=== PATIENT | male | born 1960 | race Caucasian/White ===

== ENCOUNTER 2018-09-28 19:07 | Observation (INO) | payer OTHER, SELFPAY ==
[2018-09-28 19:39] LABS: Absolute Lymphocytes (CBC) 4.4 K/uL (0.7-4.9); Absolute Neutrophil 7.6 K/uL (1.8-8.0); Basophils % 0.4 % (0-1.3); Eosinophils % 1.6 % (0-4.4); Hematocrit 45.7 % (39.6-49.0); Lymphocytes % 33.1 % (15.3-44.8); MPV 9.4 fL (7.6-11.3); Monocytes % 7.8 % (3.3-12.3); RBC Red Blood Cell Count 4.99 M/uL (4.33-5.43)
[2018-09-28 19:40] LABS: Protime INR 1.03
[2018-09-28] MEDS ORDERED: METOPROLOL TAR 25 MG TAB ONE (19:49)
--- NOTE | 2018-09-28 19:49 | RAD REPORT ---
EXAM DESCRIPTION: [place] Single View09/28/2018 7:41 pm CLINICAL HISTORY: Chest pain COMPARISON: none FINDINGS: The lungs appear clear of acute infiltrate. The heart is normal size IMPRESSION: No acute abnormalities displayed
[2018-09-28 19:56] LABS: ALT/SGPT 18 U/L (12-78); AST/SGOT 12 U/L (15-37); Albumin 3.4 g/dL (3.4-5.0); Alkaline Phosphatase 128 U/L (45-117); BUN Blood Urea Nitrogen 19 mg/dL (7-18); Bicarbonate 24 mmol/L (21-32); Bilirubin Direct 0.1 mg/dL (0-0.2); Bilirubin Total 0.4 mg/dL (0.2-1.0); Glucose Level 92 mg/dL (74-106); Magnesium 2.4 mg/dL (1.8-2.4); NT PRO-BNP 201 pg/mL (<125); Potassium 3.5 mmol/L (3.5-5.1); Protein, Total 7.4 g/dL (6.4-8.2); Sodium Level 139 mmol/L (136-145); Troponin (Emerg Dept Use Only) < 0.02 ng/mL (0.0-0.045)
[2018-09-28] MEDS ORDERED: ALPRAZOLAM 0.25 MG TABLET PO PRN (20:08)
[2018-09-28] MEDS ORDERED: MORPHINE 4 MG/ML SYR IV PRN (20:08)
[2018-09-28] MEDS ORDERED: ACETAMINOPHEN 500 MG TAB PO PRN (20:08)
--- NOTE | 2018-09-28 20:11 | EDPHYS ---
Physician Documentation [facility] Name: Juan José Mcginnis Jr Age: 58 yrs Sex: Male : 1960 Arrival Date: 09/28/2018 Time: 19:07 Bed 18 Private MD: ED Physician Mir Marroquin HPI: 09/28 19:30 This 58 yrs old Male presents to ER via Ambulatory with complaints of Chest cp Pain. 19:30 The patient or guardian reports chest pain that is located primarily in the anterior cp chest wall, left. 19:30 Onset: today, while working. The pain radiates to back. Associated signs and symptoms: cp Pertinent negatives: abdominal pain, diaphoresis, dizziness, headache, lower extremity pain, lower extremity swelling, recent travel, shortness of breath, syncope. 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 Historical: - Allergies: 19:12 No Known Allergies; ed1 - Home Meds: 19:25 Nitrostat SL [Active]; bb - PMHx: 19:12 Hypertension; ed1 19:25 CAD; High Cholesterol; bb - PSHx: 19:12 Heart stents; ed1 19:25 Knee surgery; arm surgery; Tonsillectomy; bb - Immunization history:: Adult Immunizations unknown. - Social history:: Smoking status: Patient uses tobacco products, smokes one pack cigarettes per day. Patient uses alcohol, but reports only rare drinking. - Ebola Screening: : No symptoms or risks identified at this time. ROS: 19:33 Constitutional: Negative for body aches, chills, fever, poor PO intake. cp 19:33 Eyes: Negative for injury, pain, redness, and discharge. cp 19:33 ENT: Negative for drainage from ear(s), ear pain, sore throat, difficulty swallowing, difficulty handling secretions. 19:33 Cardiovascular: Positive for chest pain, Negative for edema, palpitations. 19:33 Respiratory: Negative for cough, shortness of breath, wheezing. 19:33 Abdomen/GI: Negative for abdominal pain, nausea, vomiting, and diarrhea, constipation, black/tarry stool, rectal bleeding. 19:33 Back: Positive for radiated pain. 19:33 Skin: Negative for rash. 19:33 Neuro: Negative for altered mental status, gait disturbance, headache, weakness. 19:33 All other systems are negative. Exam: 19:25 ECG was reviewed by the Attending Physician. cp 19:40 Constitutional: The patient appears in no acute distress, alert, awake, cp non-diaphoretic, non-toxic, well developed, well nourished. 19:40 Head/Face: Normocephalic, atraumatic. cp 19:40 Eyes: Pupils equal round and reactive to light, extra-ocular motions intact. Lids and lashes normal. Conjunctiva and sclera are non-icteric and not injected. Cornea within normal limits. Periorbital areas with no swelling, redness, or edema. ENT: Nares patent. No nasal discharge, no septal abnormalities noted. Tympanic membranes are normal and external auditory canals are clear. Oropharynx with no redness, swelling, or masses, exudates, or evidence of obstruction, uvula midline. Mucous membranes moist. Chest/axilla: Normal chest wall appearance and motion. Nontender with no deformity. No lesions are appreciated. 19:40 Cardiovascular: Rate: normal, Rhythm: regular, Heart sounds: murmur, not appreciated, Edema: is not appreciated, JVD: is not appreciated. 19:40 Respiratory: the patient does not display signs of respiratory distress, Respirations: normal, no use of accessory muscles, no retractions, no splinting, no tachypnea, labored breathing, is not present, Breath sounds: are clear throughout, no decreased breath sounds, no stridor, no wheezing. 19:40 Abdomen/GI: Inspection: abdomen appears normal, Bowel sounds: active, all quadrants, Palpation: abdomen is soft and non-tender, in all quadrants. 19:40 Back: pain, that is mild, of the upper back, ROM is normal. 19:40 Musculoskeletal/extremity: Exam is negative for calf tenderness, edema. 19:40 Skin: no rash present. 19:40 Neuro: Orientation: to person, place \T\ time. Mentation: is normal, Cerebellar function: is grossly normal, Motor: moves all fours, strength is normal, Sensation: is normal. Vital Signs: 19:21 BP 147 / 104; Pulse 97; Resp 16 S; Temp 98.5(O); Pulse Ox 98% on R/A; Weight 95.25 kg bb (R); Height 5 ft. 9 in. (175.26 cm) (R); Pain 0/10; 19:30 BP 150 / 104; Pulse 92; Resp 18; Pulse Ox 98% ; ea 20:00 BP 129 / 89; Pulse 83; Resp 18; Temp 98; Pulse Ox 98% on R/A; Pain 0/10; ea 21:15 BP 150 / 93; Pulse 75; Resp 18; Pulse Ox 99% on R/A; Pain 0/10; ea 21:18 Temp 98; ea 19:21 Body Mass Index 31.01 (95.25 kg, 175.26 cm) bb MDM: 19:13 Patient medically screened. cp 19:30 Differential diagnosis: abnormal EKG, acute myocardial infarction, coronary artery cp disease esophagitis, pulmonary embolus, stable angina, thoracic aortic disection, unstable angina. 20:10 The patient was not given aspirin in the Emergency Department. Patient reports taking cp aspirin within the past 24 hours. 20:10 Data reviewed: vital signs, nurses notes, lab test result(s), EKG, radiologic studies, cp plain films, and as a result, I will admit patient. Test interpretation: by ED physician or midlevel provider: ECG, plain radiologic studies. Counseling: I had a detailed discussion with the patient and/or guardian regarding: the historical points, exam findings, and any diagnostic results supporting the discharge/admit diagnosis, lab results, radiology results, the need for further work-up and treatment in the hospital. 09/28 19:19 Order name: Basic Metabolic Panel cp 09/28 19:19 Order name: CBC with Diff cp 09/28 19:19 Order name: LFT's cp 09/28 19:19 Order name: Magnesium cp 09/28 19:19 Order name: NT PRO-BNP; Complete Time: 20:02 cp 09/28 20:02 Interpretation: Abnormal: NT PRO-BNP 201. cp 09/28 19:19 Order name: PT-INR; Complete Time: 20:02 cp 09/28 19:19 Order name: Troponin (emerg Dept Use Only); Complete Time: 20:02 cp 09/28 19:20 Order name: Basic Metabolic Panel; Complete Time: 20:02 EDMS 09/28 19:20 Order name: CBC with Automated Diff; Complete Time: 20:02 EDMS 09/28 20:02 Interpretation: Normal except: WBC 13.2. cp 09/28 19:20 Order name: Liver (Hepatic) Function; Complete Time: 20:02 [facility] 09/28 19:20 Order name: Magnesium; Complete Time: 20:02 [facility] 09/28 20:13 Order name: Lipid Profile [facility] 09/28 20:13 Order name: Lipid Profile [facility] 09/28 20:13 Order name: Troponin I [facility] 09/28 19:19 Order name: XRAY Chest (1 view); Complete Time: 20:02 cp 09/28 19:19 Order name: EKG; Complete Time: 19:20 cp 09/28 19:19 Order name: Cardiac monitoring; Complete Time: 21:37 cp 09/28 19:19 Order name: EKG - Nurse/Tech; Complete Time: 21:37 cp 09/28 19:19 Order name: IV Saline Lock; Complete Time: 21:37 cp 09/28 19:19 Order name: Labs collected and sent; Complete Time: 21:37 cp 09/28 20:13 Order name: CONS Physician Consult [facility] 09/28 20:13 Order name: CONS Physician Consult [facility] 09/28 20:13 Order name: Heart Healthy [facility] 09/28 20:13 Order name: Echo with Doppler [facility] 09/28 20:13 Order name: EKG Electrocardiogram [facility] 09/28 20:13 Order name: EKG Electrocardiogram [facility] 09/28 20:13 Order name: Troponin I [facility] 09/28 20:13 Order name: Troponin I [facility] 09/28 19:19 Order name: O2 Per Protocol; Complete Time: 21:37 cp 09/28 19:19 Order name: O2 Sat Monitoring; Complete Time: 21:37 cp 09/28 20:06 Order name: Blood Pressure Recheck: bilateral upper extremities; Complete Time: 21:36 cp EC:25 Rate is 96 beats/min. Rhythm is regular. UT interval is normal. QRS interval is normal. cp QT interval is normal. Interpreted by me. Reviewed by me. Administered Medications: 19:33 Not Given (pt took dose before arrival to ED): Aspirin Chewable Tablet 324 mg PO once; ea 81 mg tablets x 4 19:42 Drug: Metoprolol 25 mg Route: PO; ea 21:36 Follow up: Response: No adverse reaction ea Disposition: 21:38 Co-signature as Attending Physician, Mir Marroquin MD. ma2 Disposition: 09/28/18 20:11 Hospitalization ordered by Mir Ramirez for Observation. Preliminary diagnosis is Chest pain, unspecified. - Bed requested for Telemetry/MedSurg (observation). - Status is Observation. ea - Condition is Stable. - Problem is new. - Symptoms have improved. UTI on Admission? No Addendum: 10/05/2018 19:54 Co-signature as Attending Physician, Mir Marroquin MD. m a2 Signatures: Dispatcher [employer] EDMS Jasmine Arenas RN RN bb Stephy Garduno RN RN ed1 Rohan Shen PA PA cp Garcia, Cindy RN RN cg Melinda Brown RN RN Mir Bentley MD MD ma2 Corrections: (The following items were deleted from the chart) 09/28 19:25 19:12 Home Meds: None; ed1 bb 20:30 20:11 Hospitalization Ordered by Mir Ramirez MD for Observation. Preliminary cg diagnosis is Chest pain, unspecified. Bed requested for Telemetry/MedSurg (observation). Status is Observation. Condition is Stable. Problem is new. Symptoms have improved. UTI on Admission? No. cp 21:36 20:30 09/28/2018 20:11 Hospitalization Ordered by Mir Ramirez MD for Observation. ea Preliminary diagnosis is Chest pain, unspecified. Bed requested for Telemetry/MedSurg (observation). Status is Observation. Condition is Stable. Problem is new. Symptoms have improved. UTI on Admission? No. cg
--- NOTE | 2018-09-28 20:11 | ER ---
Nurse's Notes [facility] Name: Juan José Mcginnis Jr Age: 58 yrs Sex: Male : 1960 Arrival Date: 09/28/2018 Time: 19:07 Bed 18 Private MD: Diagnosis: Chest pain, unspecified Presentation: 09/28 19:10 Presenting complaint: Patient states: I have chest pains that started a couple of hours ed1 ago. They are not that bad right now but I took some Nitro. Transition of care: patient was not received from another setting of care. Onset of symptoms was September 28, 2018. Risk Assessment: Do you want to hurt yourself or someone else? Patient reports no desire to harm self or others. Initial Sepsis Screen: Does the patient meet any 2 criteria? No. Patient's initial sepsis screen is negative. Does the patient have a suspected source of infection? No. Patient's initial sepsis screen is negative. Care prior to arrival: Medication(s) given: Nitroglycerin. 19:10 Method Of Arrival: Ambulatory ed1 19:10 Acuity: CLAUDIA 2 ed1 Historical: - Allergies: 19:12 No Known Allergies; ed1 - Home Meds: 19:25 Nitrostat SL [Active]; bb - PMHx: 19:12 Hypertension; ed1 19:25 CAD; High Cholesterol; bb - PSHx: 19:12 Heart stents; ed1 19:25 Knee surgery; arm surgery; Tonsillectomy; bb - Immunization history:: Adult Immunizations unknown. - Social history:: Smoking status: Patient uses tobacco products, smokes one pack cigarettes per day. Patient uses alcohol, but reports only rare drinking. - Ebola Screening: : No symptoms or risks identified at this time. Screenin:25 Abuse screen: Denies threats or abuse. Nutritional screening: No deficits noted. ea Tuberculosis screening: No symptoms or risk factors identified. Fall Risk None identified. Assessment: 19:28 General: Appears in no apparent distress. Pain: Denies pain. Complains of pain in chest ea Pain radiates to back Pain currently is 0 out of 10 on a pain scale. Quality of pain is described as pressure, Pain began 1 hour ago. Is continuous. Neuro: Level of Consciousness is awake, alert, obeys commands, Oriented to person, place, time, situation. Cardiovascular: Patient's skin is warm and dry. Respiratory: Airway is patent Respiratory effort is even, unlabored, Respiratory pattern is regular, symmetrical. Derm: Skin is pink, warm \T\ dry. Musculoskeletal: Circulation, motion, and sensation intact. 20:30 Reassessment: Patient and/or family updated on plan of care and expected duration. Pain ea level reassessed. Patient is alert, oriented x 3, equal unlabored respirations, skin warm/dry/pink. 21:16 Reassessment: Patient and/or family updated on plan of care and expected duration. Pain ea level reassessed. Patient is alert, oriented x 3, equal unlabored respirations, skin warm/dry/pink. Report called to Leonel ANSARI on fourth floor. 21:30 Reassessment: Patient and/or family updated on plan of care and expected duration. Pain ea level reassessed. Patient is alert, oriented x 3, equal unlabored respirations, skin warm/dry/pink. Pt denies chest pain at this time, admitted to fourth floor, pt taken via wheelchair per charge nurse, pt tolerating well. Vital Signs: 19:21 BP 147 / 104; Pulse 97; Resp 16 S; Temp 98.5(O); Pulse Ox 98% on R/A; Weight 95.25 kg bb (R); Height 5 ft. 9 in. (175.26 cm) (R); Pain 0/10; 19:30 BP 150 / 104; Pulse 92; Resp 18; Pulse Ox 98% ; ea 20:00 BP 129 / 89; Pulse 83; Resp 18; Temp 98; Pulse Ox 98% on R/A; Pain 0/10; ea 21:15 BP 150 / 93; Pulse 75; Resp 18; Pulse Ox 99% on R/A; Pain 0/10; ea 21:18 Temp 98; ea 19:21 Body Mass Index 31.01 (95.25 kg, 175.26 cm) bb ED Course: 19:07 Patient arrived in ED. rg4 19:11 Triage completed. ed1 19:13 Rohan Shen PA is PHCP. cp 19:13 Mir Marroquin MD is Attending Physician. cp 19:16 EKG completed in triage. Results shown to MD. Family accompanied patient. bb 19:21 Arm band placed on Patient placed in an exam room, on a stretcher, on monitoring and evaluation advisor, bb on pulse oximetry. EKG completed in triage. Results shown to MD. 19:25 Patient has correct armband on for positive identification. Bed in low position. Call ea light in reach. Side rails up X2. potline monitor on. Pulse ox on. NIBP on. 19:32 Melinda Brown, RN is Primary Nurse. ea 19:38 XRAY Chest (1 view) In Process Unspecified. EDMS 19:50 Inserted saline lock: 20 gauge in right antecubital area, using aseptic technique. ea 20:10 Mir Ramirez MD is Hospitalizing Provider. cp 21:33 No provider procedures requiring assistance completed. Patient admitted, IV remains in ea place. Patient maintains SpO2 saturation greater than 95% on room air. Administered Medications: 19:33 Not Given (pt took dose before arrival to ED): Aspirin Chewable Tablet 324 mg PO once; ea 81 mg tablets x 4 19:42 Drug: Metoprolol 25 mg Route: PO; ea 21:36 Follow up: Response: No adverse reaction ea Outcome: 20:11 Decision to Hospitalize by Provider. cp 21:33 Admitted to Med/surg accompanied by tech, room 429, Report called to Leonel ANSARI ea 21:33 Condition: stable 21:33 Instructed on the need for admit, Demonstrated understanding of instructions. 21:36 Patient left the ED. ea Signatures: Dispatcher [employer] EDMS Jasmine Arenas RN RN Stephy Sheldon RN RN ed1 Rohan Shen PA PA Dominga [place] rg4 Melinda Brown, RN RN ea Corrections: (The following items were deleted from the chart) 19:25 19:12 Home Meds: None; ed1 bb
[2018-09-28] MEDS: METOPROLOL TAR 50 MG TAB PO SCH (21:00)
[2018-09-28 21:59] VITALS: BMI 31.4
[2018-09-28 23:48] LABS: Urine Appearance CLEAR; Urine Bilirubin NEGATIVE (NEG); Urine Blood NEGATIVE (NEG); Urine Color YELLOW; Urine Glucose NEGATIVE (NEG); Urine Protein NEGATIVE (NEG); Urine Specific Gravity <=1.005 (1.005-1.030); Urine pH 6.5 (5.0-7.0)
[2018-09-28 23:52] LABS: Urine Microscopic Reflex NO UMIC
--- NOTE | 2018-09-29 06:15 | EKG ---
Test Date: 2018-09-28 Test Time: 19:16:14 Drywall Sander: GIOVANNY MEASUREMENT RESULTS: Intervals: Rate: 96 MD: 162 QRSD: 74 QT: 346 QTc: 437 Carmi: P: 48 MD: 162 QRS: -25 T: 24 INTERPRETIVE STATEMENTS: Normal sinus rhythm Normal ECG Compared to ECG 04/25/1997 15:16:00 Sinus tachycardia no longer present Electronically Signed On 09-29-18 06:14:49 CDT by Hudson Lozano
[2018-09-29] MEDS ORDERED: ASPIRIN EC 81 MG TAB PO SCH (09:00)
[2018-09-29] MEDS: METOPROLOL TAR 50 MG TAB PO SCH (09:00)
[2018-09-29] MEDS ORDERED: ENOXAPARIN 40 MG/0.4 ML SQ SCH (09:00)
[2018-09-29] MEDS ORDERED: REGADENOSON 0.4 MG/5 ML SYR IV ONE (09:33)
--- NOTE | 2018-09-29 10:05 | RAD REPORT ---
EXAM DESCRIPTION: US - CP - 09/29/2018 9:28 am CLINICAL HISTORY: bruit Carotid bruit, neck pain COMPARISON: No comparisons TECHNIQUE: Real-time sonographic evaluation of both carotid systems was performed. Doppler interroga tion was performed with waveform tracing bilaterally. FINDINGS: Normal high resistance waveforms are noted in both external carotid arteries. The common c arotid arteries and internal carotid arteries show normal low resistance waveforms. Mild hard plaquing is seen in both carotid bulbs. Peak systolic and end diastolic velocity values and the ICA/CCA ratios are in the non-hemodynamically significant range. Antegrade flow seen in both vertebral arteries. IMPRESSION: Mild hard plaquing is seen in both carotid bulbs. No evidence of a hemodynamically significant stenosis.
--- NOTE | 2018-09-29 11:06 | ECHO ---
HEIGHT: 5 ft 9 in WEIGHT: 212 lb 9.6 oz DATE OF STUDY: 09/29/[address]: Mir Ramirez MD 2-DIMENSIONAL: YES M.MODE: YES DOPPLER: YES COLOR FLOW: YES TDS: NO PORTABLE: NO DEFINITY: NO BUBBLE STUDY: NO DIAGNOSIS: CHEST PAIN/ RULE OUT ACUTE CORONARY SYNDROME CARDIAC HISTORY: CATHERIZATION: YES SURGERY: NO PROSTHETIC VALVE: NO PACEMAKER: NO MEASUREMENTS (cm) DIASTOLIC (NORMALS) SYSTOLIC (NORMALS) IVSd 1.0 (0.6-1.2) LA Diam 3.4 (1.9-4.0) LVEF 52% LVIDd 5.3 (3.5-5.7) LVIDs 3.9 (2.0-3.5) %FS 27% LVPWd 1.0 (0.6-1.2) Ao Diam 3.3 (2.0-3.7) 2 DIMENSIONAL ASSESSMENT: RIGHT ATRIUM: NORMAL LEFT ATRIUM: NORMAL RIGHT VENTRICLE: NORMAL LEFT VENTRICLE: NORMAL TRICUSPID VALVE: NORMAL MITRAL VALVE: NORMAL PULMONIC VALVE: NORMAL AORTIC VALVE: NORMAL PERICARDIAL EFFUSION: NONE AORTIC ROOT: NORMAL LEFT VENTRICULAR WALL MOTION: NORMAL. DOPPLER/COLOR FLOW: NORMAL. COMMENTS: NORMAL 2D ECHO WITH DOPPLER. NO WALL MOTION ABNORMALITY. NO EFFUSION. TECHNOLOGIST: EMILIE CROCKER
--- NOTE | 2018-09-29 11:38 | RAD REPORT ---
EXAM DESCRIPTION: NM - Rest Stress Cardiac Imaging - 09/29/2018 11:30 am CLINICAL HISTORY: Chest pain COMPARISON: None. TECHNIQUE: The patient was administered 11 mCi of Tc 99m Sestamibi prior to resting SPECT imaging of the heart. The patient was then administered 32.2 mCi of Tc 99m Sestamibi following exercise or phar macologic stress. Multiplanar SPECT images were reviewed. FINDINGS: The end diastolic volume is 140 ml, the end systolic volume is 78 ml, and the ejection fra ction is 45 %. No stress-induced ischemic changes are identifiable. Patient has moderate fixed defect lateral wall a t the apex. There is moderately large fixed defect in the mid and apical portion of the inferior wall . These areas are favored to be scarring rather than attenuation artifact. IMPRESSION: No stress-induced ischemic changes. Scarring changes are present in the lateral wall at the apex and in the mid and apex portion of the i nferior wall. End-diastolic volume was 140 mL with a below normal ejection fraction of 45%.
--- NOTE | 2018-09-29 11:41 | P.HP ---
Certification for Inpatient Patient admitted to: Observation With expected LOS: <2 Midnights Patient will require the following post-hospital care: None Practitioner: I am a practitioner with admitting privileges, knowledge of patient current condition, hospital course, and medical plan of care. Services: Services provided to patient in accordance with Admission requirements found in Title 42 Section 412.3 of the Code of Federal Regulations Patient History Date of Service: 09/28/18 Reason for admission: chest pain rule out acute coronary stent History of Present Illness: Patient is a 58-year-old gentleman who came into the hospital with chest discomfort. Pain was mainly in the sternal region and radiated to his arm. Patient did not have any nausea but was a little short of breath. He had history of coronary artery disease and he states this pain was similar to the pain he had about 5 years ago. At that time he had a stent placed. He came into the emergency room for further evaluation. His initial troponins and EKG have been negative. He will be admitted to the hospital for further workup and for cardiac stress testing. Allergies No Known Allergies Allergy (Unverified 09/28/18 22:01) Home Medications: NK [No Home Meds] 09/29/18 - Past Medical/Surgical History Has patient received pneumonia vaccine in the past: No Diabetic: No -: HLD -: HTN -: CAD -: Stent placement 5 yr ago -: tonsilectomy -: Elvis Knee Sx -: Rt wrist Sx - Family History Father Medical History: Heart disease, Hypertension - Social History Smoking Status: Current every day smoker Alcohol use: Yes CD- Drugs: No Caffeine use: Yes Place of Residence: Home Review of Systems 10-point ROS is otherwise unremarkable Physical Examination - Vital Signs Temperature: 97.6 F Blood Pressure: 133/89 Pulse: 71 Respirations: 20 Pulse Ox (%): 96 - Physical Exam General: Alert, In no apparent distress, Oriented x3 HEENT: Atraumatic, PERRLA, Mucous membr. moist/pink, EOMI, Sclerae nonicteric Neck: Supple, No LAD, Without JVD or thyroid abnormality, Bruit Respiratory: Clear to auscultation bilaterally, Normal air movement Cardiovascular: Regular rate/rhythm, Normal S1 S2 Gastrointestinal: Normal bowel sounds, Soft and benign, Non-distended, No tenderness Musculoskeletal: No clubbing, No swelling, No tenderness Integumentary: No rashes Neurological: Normal gait, Normal speech, Normal strength at 5/5 x4 extr, Normal tone, Sensation intact, Cranial nerves 3-12 intact, Normal affect Lymphatics: No axilla or inguinal lymphadenopathy - Studies Laboratory Data (last 24 hrs) 09/28/18 19:30: PT 12.1, INR 1.03 09/28/18 19:30: WBC 13.2 H, Hgb 15.0, Hct 45.7, Plt Count 166 09/28/18 19:30: Sodium 139, Potassium 3.5, BUN 19 H, Creatinine 0.95, Glucose 92 , Magnesium 2.4, Total Bilirubin 0.4, AST 12 L, ALT 18, Alkaline Phosphatase 128 H Assessment & Plan - Problems (Diagnosis) (1) Chest pain, rule out acute myocardial infarction Current Visit: Yes Status: Acute (2) Hypertension Current Visit: Yes Status: Acute (3) Tobacco abuse Current Visit: Yes Status: Acute (4) History of coronary artery disease Current Visit: Yes Status: Acute - Plan 1. Serial troponins and EKG 2. Cardiology consultation 3. Echocardiogram and inpatient stress test(pending cardiology evaluation) 4. Anti-platelet therapy, anti coagulation, beta-deepa, statin, and O2 as needed 5. IV morphine for pain 6. Nitro p.r.n. 7. PPI 8. DVT prophylaxis - Advance Directives Does patient have a Living Will: No Does patient have a Durable POA for Healthcare: No
--- NOTE | 2018-09-29 11:54 | P.SSS ---
Patient History Date of Service: 09/29/18 Reason for admission: chest pain rule out acute coronary stent History of Present Illness: See HPI Allergies No Known Allergies Allergy (Unverified 09/28/18 22:01) Home Medications: NK [No Home Meds] 09/29/18 - Past Medical/Surgical History Has patient received pneumonia vaccine in the past: No Diabetic: No -: HLD -: HTN -: CAD -: Stent placement 5 yr ago -: tonsilectomy -: Elvis Knee Sx -: Rt wrist Sx - Family History Father -: Heart disease, Hypertension - Social History Smoking Status: Current every day smoker Alcohol use: Yes CD- Drugs: No Caffeine use: Yes Place of Residence: Home Review of Systems 10-point ROS is otherwise unremarkable Physical Examination - Vital Signs Temperature: 97.6 F Blood Pressure: 133/89 Pulse: 71 Respirations: 20 Pulse Ox (%): 96 - Physical Exam General: Alert, In no apparent distress HEENT: Atraumatic, PERRLA, Mucous membr. moist/pink, EOMI, Sclerae nonicteric Neck: Supple, 2+ carotid pulse no bruit, No LAD, Without JVD or thyroid abnormality Respiratory: Clear to auscultation bilaterally, Normal air movement Cardiovascular: Regular rate/rhythm, Normal S1 S2 Gastrointestinal: Normal bowel sounds, No tenderness Musculoskeletal: No tenderness Integumentary: No rashes Neurological: Normal gait, Normal speech, Normal strength at 5/5 x4 extr, Normal tone, Normal affect Lymphatics: No axilla or inguinal lymphadenopathy - Studies Laboratory Data (last 24 hrs) 09/28/18 19:30: PT 12.1, INR 1.03 09/28/18 19:30: WBC 13.2 H, Hgb 15.0, Hct 45.7, Plt Count 166 09/28/18 19:30: Sodium 139, Potassium 3.5, BUN 19 H, Creatinine 0.95, Glucose 92 , Magnesium 2.4, Total Bilirubin 0.4, AST 12 L, ALT 18, Alkaline Phosphatase 128 H - Diagnosis (Problem(s)) (1) Chest pain, rule out acute myocardial infarction Current Visit: Yes Status: Acute (2) History of coronary artery disease Current Visit: Yes Status: Acute (3) Hypertension Current Visit: Yes Status: Chronic Qualifiers: Hypertension type: essential hypertension Qualified Code(s): I10 - Essential (primary) hypertension (4) Tobacco abuse Current Visit: Yes Status: Chronic Treatment Summary: Overall during the hospital stay patient remained stable Patient was initially admitted to the hospital for chest pain ACS rule out. Troponin x2 was negative. Patient had echocardiogram and stress test done here in the hospital which were both within normal limits. Patient then was discharged home under stable condition. Cardiology in agreement with the plan. Patient was asked to follow up with primary care doctor and cardiology in about 1-2 days post discharge. - Disposition Disposition: ROUTINE DISCHARGE Condition: GOOD Patient Discharge Instructions: Okay to Dc patient is echo and stress test within normal limits Diet: Regular Activity: Ad tariq
--- NOTE | 2018-09-29 15:00 | TREADPHA ---
DX: CHEST PAIN Date of Study: 09/29/2018 Ht: 5 9 Wt: 212 lb 9.6 oz Consulting Physician: ALIX MEDICATIONS: TYLENOL, ASPIRIN, LOPRESSOR, LOVENOX HISTORY: HYPERTENSION, CORONARY ARTERY DISEASE, HIGH CHOLESTROL, CURRENT SMOKER OF ONE PACK A DAY. PHYSICIAL EXAMINATION: RESTING B.P.: 152/106 RESTING H.R.: 78 RESTING EKG: NORMAL PROTOCOL: LEXISCAN EXERCISE TIME: 3:30 B.P. AT PEAK STRESS: 164/114 IMPRESSION: LEXISCAN STRESS TEST PERFORMED PER PROTOCOL. CARDIOLITE INJECTED PER PROTOCOL NO SUPRAVENTRICULAR TACHYCARDIA OR VENTRICULAR TACHYCARDIA NOTED. NO ARRYTHMIAS. DENIES CHEST PAIN. SEE NUCLEAR MEDICINE REPORT.
[2018-09-29 16:27] VITALS: O2SAT 95
[2018-09-29 17:28] VITALS: BP 137/86; TEMP 97.6
--- NOTE | 2018-09-30 00:24 | CON ---
Date of Consultation: 09/29/[address] Payton's service on 09/28/2018. I saw the patient on 09/29/2018. Reason For Consultation: Chest pain. History Of Present Illness: Mr. Mcginnis is a 58-year-old white male, who has a history of coronary ar jesi disease status post stent approximately 5 years ago. Has a history of hypertension, dyslipidemia. He has somehow lost to follow up as far as his cardiac care and the only medication th at now he takes is nitroglycerin as needed. He has not really needed to take the nitroglycerin, but yesterday had episode of back pain radiating to the chest and left arm that would last an hour at a t serina and was going on for about 2-3 days. No nausea, vomiting, diaphoresis, PND, orthopnea, pedal mirella ma, palpitation, or syncope. He noticed his blood pressure as being elevated. Past Medical History: Otherwise stated earlier. Allergies: NONE. Review of Systems: Negative. Social History: Negative for tobacco or drugs. Family History: Negative. Medications: At home include nitroglycerin as needed. Physical Examination: Vital Signs: Stable, afebrile. HEENT: Negative. Neck: Supple without any bruit, lymphadenopathy, JVD, or thyromegaly. Chest: Clear to auscultation and percussion. Cardiac: Revealed a regular rhythm and rate without any murmurs, gallops, or rubs. Abdomen: Benign. Extremities: Revealed no clubbing, cyanosis, or edema. Diagnostic Data: Available and were all within normal limits. Chest x-ray was normal. EKG was norm al. All his laboratory evaluation was normal. CPKs, MBs, and troponins were negative. Impression And Plan: Atypical chest pain in a patient with history of hypertension, dyslipidemia, co ronary artery disease status post stent with negative workup for myocardial infarction. He is defini tely due to have a stress test. An echocardiogram was ordered as well. We will see what those show prior to making any final decision. I strongly urged Mr. Mcginnis to keep follow up as an outpatient a nd to be at least on aspirin and a statin and hopefully we will do that. He also needs to find a [facility] physician locally. MARI/ROCHELLEL Voice ID: [id number] Report ID: [id number]
== END 2018-09-29 17:36 | disposition home or self-care (01) ==
LOC: ER 19:07 → ERHOLD 20:08 → 4TH 21:21
PROVIDERS: ADMIT Hospitalist; ATTEND Family Medicine
DX: R07.89 Other chest pain (principal); I10 Essential (primary) hypertension; I25.10 Atherosclerotic heart disease of native coronary artery without angina pectoris; I65.23 Occlusion and stenosis of bilateral carotid arteries; E78.5 Hyperlipidemia, unspecified; F17.210 Nicotine dependence, cigarettes, uncomplicated; Z95.5 Presence of coronary angioplasty implant and graft; Z79.899 Other long term (current) drug therapy
CPT/HCPCS: 36415; 71045; 78452; 80048; 80061; 80076; 81003; 83735; 83880; 84484; 85025; 85610; 93005; 93017; 93306; 93880; 99285; A9500; G0378; J1650; J2785

== ENCOUNTER 2019-08-29 15:42 | Emergency (ER) | payer SELFPAY ==
[2019-08-29 16:24] LABS: Absolute Lymphocytes (CBC) 3.3 K/uL (0.7-4.9); Basophils % 1.1 % (0-1.3); Hematocrit 49.8 % (39.6-49.0); Lymphocytes % 22.4 % (15.3-44.8); MPV 10.5 fL (7.6-11.3); RBC Red Blood Cell Count 5.48 M/uL (4.33-5.43)
[2019-08-29 16:35] LABS: Protime INR 0.95
[2019-08-29 16:41] LABS: ALT/SGPT 23 U/L (12-78); AST/SGOT 17 U/L (15-37); Albumin 3.7 g/dL (3.4-5.0); Alkaline Phosphatase 134 U/L (45-117); BUN Blood Urea Nitrogen 16 mg/dL (7-18); Bicarbonate 27 mmol/L (21-32); Bilirubin Direct < 0.1 mg/dL (0-0.2); Bilirubin Total 0.3 mg/dL (0.2-1.0); Glucose Level 111 mg/dL (74-106); Magnesium 2.2 mg/dL (1.8-2.4); NT PRO-BNP 261 pg/mL (<125); Potassium 3.7 mmol/L (3.5-5.1); Protein, Total 7.9 g/dL (6.4-8.2); Sodium Level 140 mmol/L (136-145); Troponin (Emerg Dept Use Only) < 0.02 ng/mL (0.0-0.045)
--- NOTE | 2019-08-29 17:40 | RAD REPORT ---
EXAM DESCRIPTION: CT - Head Brain Wo Cont - 08/29/2019 5:12 pm CLINICAL HISTORY: DIZZINESS COMPARISON: Head angio dated 08/29/2019 TECHNIQUE: Axial 5 mm thick images of the head were obtained without IV contrast. All CT scans are performed using dose optimization technique as appropriate and may include automated exposure control or mA/KV adjustment according to patient size. FINDINGS: No intracranial hemorrhage, mass, edema or shift of mid-line structures. No acute infarcti on changes seen. Small focus of encephalomalacia is seen in the anterior left frontal lobe. Ventricle s are normal. No significant atrophy changes. No other significant areas of possible acute or remote ischemic change. Mastoid air cells are clear. Right frontal and anterior right ethmoid air cell mucosal thickening joaquin nges are present. Paranasal sinuses are otherwise clear. No acute bony findings. IMPRESSION: No hemorrhage or acute intracranial finding seen. Decreased attenuation anterior left fr ontal lobe has the appearance of old ischemia. Continued concerns for an acute ischemic event can be further evaluated with follow-up MR imaging.
--- NOTE | 2019-08-29 17:45 | RAD REPORT ---
EXAM DESCRIPTION: CT - Neck Angio - 08/29/2019 5:12 pm CLINICAL HISTORY: dizziness, episodic weakness and paresthesias in the right arm and leg, right face paresthesia TECHNIQUE: During dynamic enhancement using nonionic IV contrast, axial 2 mm thick images of the nec k were obtained. Sagittal and axial reconstruction images were generated using MIP technique and revi ewed. All CT scans are performed using dose optimization technique as appropriate and may include automated exposure control or mA/KV adjustment according to patient size. COMPARISON: CT head same date FINDINGS: No aneurysm or vascular malformation identified. Right vertebral artery is dominant. No d issection or acute vertebral artery finding. No basilar artery abnormality seen. No aortic arch or great vessel origin abnormality seen. Bilateral common carotid artery show no signi ficant or suspicious finding. Right internal carotid artery is unremarkable. There is occlusion of th e left internal carotid artery 5 mm from origin. A small portion of the supraclinoid left internal ca rotid artery's opacified likely from the right-side circulation. Anterior communicating artery is pre sent. Mild atherosclerotic calcifications are present. No vasculitis findings. IMPRESSION: Occluded left internal carotid artery 5 mm from the origin. The left supraclinoid portion of the ICA opacifies likely from crossover via the anterior communicati ng artery.
--- NOTE | 2019-08-29 17:48 | RAD REPORT ---
EXAM DESCRIPTION: CT - Head angio - 08/29/2019 5:12 pm CLINICAL HISTORY: DIZZINESS, two-month history of intermittent weakness and paresthesias of the righ t arm, leg and face TECHNIQUE: During dynamic enhancement using nonionic IV contrast, axial 1 millimeter thick images of the head were obtained. Sagittal and axial reconstruction images were generated using MIP technique and reviewed. All CT scans are performed using dose optimization technique as appropriate and may include automated exposure control or mA/KV adjustment according to patient size. COMPARISON: CT head same date, CT angio neck same date FINDINGS: No aneurysm or vascular malformation identified. Major venous sinuses are patent. Distal vertebral arteries and basilar artery show no suspicious findings. Bilateral posterior cerebra l arteries without suspicious finding. Right CUSTOM CLOTHIER P1 segment is small or absent. Patient has a large r ight posterior communicating artery. This is a normal variant pattern. Anterior communicating artery is present. Left internal carotid artery is occluded with a small portion of the supraclinoid opacifi ed. This would be due to crossover from the anterior communicating artery. There could be additional small crossover vessels from the right side circulation or left external carotid circulation. IMPRESSION: Occluded left internal carotid artery. The left ICA supraclinoid portion opacifies from across over from the anterior communicating artery.
[2019-08-29] MEDS ORDERED: ASPIRIN 81 MG CHEWABLE TABLET ONE (18:02)
--- NOTE | 2019-08-29 19:07 | EDPHYS ---
Physician Documentation [facility] Name: Juan José Mcginnis Jr Age: 59 yrs Sex: Male : 1960 Arrival Date: 08/29/2019 Time: 15:44 Bed 5 Private MD: ED Physician Zohaib Reis HPI: 08/28 15:49 This 59 yrs old Male presents to ER via Ambulatory with complaints of Blurred jmm Vision, Dizziness, Numbness. 15:49 The patient's problem is reported as paresthesias, weakness, in the right upper jmm extremity, in the right lower extremity. Onset: The symptoms/episode began/occurred gradually, 2 month(s) ago. This is a 59 year old male with a history of CAD, HLP, HTN that presents to the ED with complaints of intermittent episodes of paresthesias and weakness to the right arm and right leg he had attributed to a pinched nerve. Patient had an episode most recently this and visited with his chiropractor whom was concerned about TIA/CVA. Patient states he had an episode of lightheadedness and blurred vision which lasted approx 2 to 4 minutes earlier today. Currently all symptoms have resolved.. Historical: - Allergies: 16:10 No Known Allergies; iw - Home Meds: 16:10 Lisinopril Oral [Active]; iw - PMHx: 16:10 CAD; High Cholesterol; Hypertension; iw - PSHx: 16:10 Heart stents; Knee surgery; arm surgery; Tonsillectomy; iw - Immunization history:: Adult Immunizations not up to date. - Social history:: Smoking status: Patient reports the use of cigarette tobacco products, smokes one pack cigarettes per day. ROS: 15:49 Constitutional: Negative for fever, chills, and weight loss, Cardiovascular: Negative jmm for chest pain, palpitations, and edema, Respiratory: Negative for shortness of breath, cough, wheezing, and pleuritic chest pain. 15:49 Neuro: Positive for dizziness, numbness. 15:49 All other systems are negative. Exam: 15:49 Constitutional: This is a well developed, well nourished patient who is awake, alert, jmm and in no acute distress. Head/Face: atraumatic. Eyes: EOMI, no conjunctival erythema appreciated ENT: Moist Mucus Membranes Neck: Trachea midline, Supple Chest/axilla: Normal chest wall appearance and motion. Cardiovascular: Regular rate and rhythm. No edema appreciated Respiratory: Normal respirations, no respiratory distress appreciated Abdomen/GI: Non distended, soft Back: Normal ROM Skin: General appearance color normal MS/ Extremity: Moves all extremities, no obvious deformities appreciated, no edema noted to the lower extremities 15:49 Neuro: Orientation: is normal, Mentation: is normal, Memory: is normal, Cerebellar function: normal finger to nose testing, Motor: is normal, Sensation: is normal, Gait: is steady. 15:49 Psych: Behavior/mood is pleasant, cooperative. Vital Signs: 16:02 BP 147 / 107; Pulse 112; Resp 18 S; Temp 98.7; Pulse Ox 98% on R/A; iw 16:31 BP 128 / 97; Pulse 101; Resp 14; Pulse Ox 97% on R/A; jl7 17:56 BP 145 / 100; Pulse 92; Resp 16 S; Pulse Ox 97% on R/A; ca1 18:19 BP 139 / 107; Pulse 99; Resp 18 S; Pulse Ox 96% on R/A; ca1 18:40 BP 151 / 99; Pulse 92; Resp 20 S; Pulse Ox 98% on R/A; ca1 19:17 BP 152 / 100; Pulse 84; Resp 18; Temp 98; Pulse Ox 100% on R/A; mg2 MDM: 15:49 Patient medically screened. [facility] 19:04 Data reviewed: vital signs, nurses notes. Counseling: I had a detailed discussion with [facility] the patient and/or guardian regarding: the historical points, exam findings, and any diagnostic results supporting the discharge/admit diagnosis, lab results, radiology results, the need for outpatient follow up, to return to the emergency department if symptoms worsen or persist or if there are any questions or concerns that arise at home. ED course: I discussed the patient with Dr Jaramillo, stated this was not an acute process and would not need any acute intervention. Advised to discharge the patient with aspirin rx and lipitor and to follow up for outpatient work up. I discussed the patient with Vascular surgery at [facility] as well whom recommended outpatient management. Patient is currently asymptomatic in the ED and given strict return precautions. Patient understood and agrees with the plan of care. . 08/28 16:00 Order name: Basic Metabolic Panel; Complete Time: 16:42 [facility] 08/28 16:00 Order name: CBC with Diff; Complete Time: 16:42 [facility] 08/28 16:00 Order name: LFT's; Complete Time: 16:42 [facility] 08/28 16:00 Order name: Magnesium; Complete Time: 16:42 [facility] 08/28 16:00 Order name: NT PRO-BNP; Complete Time: 16:42 [facility] 08/28 16:00 Order name: PT-INR; Complete Time: 16:42 [facility] 08/28 16:00 Order name: Troponin (emerg Dept Use Only); Complete Time: 16:42 [facility] 08/28 16:00 Order name: EKG; Complete Time: 16:01 [facility] 08/28 16:00 Order name: Cardiac monitoring; Complete Time: 16:02 [facility] 08/28 16:00 Order name: CT Head Brain wo Cont; Complete Time: 17:49 [facility] 08/28 16:00 Order name: CT Head Angio; Complete Time: 17:49 [facility] 08/28 16:00 Order name: CT Neck Angio; Complete Time: 17:49 [facility] 08/28 16:13 Order name: Glucose, Ancillary Testing; Complete Time: 16:16 [facility] 08/28 16:00 Order name: EKG - Nurse/Tech; Complete Time: 16:02 [facility] 08/28 16:00 Order name: IV Saline Lock; Complete Time: 16:02 [facility] 08/28 16:00 Order name: Labs collected and sent; Complete Time: 16:02 [facility] 08/28 16:00 Order name: O2 Per Protocol; Complete Time: 16:02 [facility] 08/28 16:00 Order name: O2 Sat Monitoring; Complete Time: 16:02 [facility] Administered Medications: 17:59 Drug: Aspirin Chewable Tablet 324 mg Route: PO; jl7 19:18 Follow up: Response: No adverse reaction mg2 Disposition: 08/29 07:26 Co-signature as Attending Physician, Zohaib Reis MD. rn Disposition: 08/29/19 19:07 Discharged to Home. Impression: Dizziness and giddiness, Occlusion and stenosis of unspecified carotid artery. - Condition is Stable. - Discharge Instructions: Dizziness. - Prescriptions for aspirin 325 mg Oral tablet - take 1 tablet by ORAL route once daily; 30 tablet. Lipitor 10 mg Oral Tablet - take 1 tablet by ORAL route once daily; 30 tablet. - Medication Reconciliation Form, Thank You Letter, Antibiotic Education, Prescription Opioid Use form. - Follow up: Jah Jack MD; When: Tomorrow; Reason: Recheck today's complaints, Continuance of care, Re-evaluation by your physician. Signatures: Dispatcher [employer] EDMS Jose De Jesus Stone PA PA jmm Williams, Irene, RN RN iw Zohaib Reis MD MD rn Leal, Jahala, RN RN jl7 Alexis Peguero RN RN mg2 Corrections: (The following items were deleted from the chart) 08/28 19:19 19:07 08/29/2019 19:07 Discharged to Home. Impression: Dizziness and giddiness; mg2 Occlusion and stenosis of unspecified carotid artery. Condition is Stable. Forms are Medication Reconciliation Form, Thank You Letter, Antibiotic Education, Prescription Opioid Use. Follow up: Jah Jack; When: Tomorrow; Reason: Recheck today's complaints, Continuance of care, Re-evaluation by your physician. nestor
--- NOTE | 2019-08-29 19:07 | ER ---
Nurse's Notes [facility] Name: Juan José Mcginnis Jr Age: 59 yrs Sex: Male : 1960 Arrival Date: 08/29/2019 Time: 15:44 Bed 5 Private MD: Diagnosis: Dizziness and giddiness;Occlusion and stenosis of unspecified carotid artery Presentation: 08/28 16:02 Chief complaint: Patient states: for past two months pt has had intermittent episodes iw of weakness and paraesthesia to right arm, right leg or right side of face, has had approx 14 different episodes that last 2-4 minutes at a time, thought he had a pinched nerve, went to see his chiropractor on Friday but was told he probably had a TIA, last episode was , had leg numbness at that time , denies any symptoms today. Coronavirus screen: Proceed with normal triage. Patient denies a cough. Patient denies shortness of breath or difficulty breathing. Patient denies measured and/or subjective temperature greater than 100.4F prior to today's visit. Patient reports travel on a cruise ship or to a country the [facility] currently lists as an affected area. Patient denies contact with known and/or suspected case of COVID-19. Ebola Screen: Patient negative for fever greater than or equal to 101.5 degrees Fahrenheit, and additional compatible Ebola Virus Disease symptoms Patient denies exposure to infectious person. Patient denies travel to an Ebola-affected area in the 21 days before illness onset. No symptoms or risks identified at this time. Initial Sepsis Screen: Does the patient meet any 2 criteria? No. Patient's initial sepsis screen is negative. Does the patient have a suspected source of infection? No. Patient's initial sepsis screen is negative. Risk Assessment: Do you want to hurt yourself or someone else? Patient reports no desire to harm self or others. Onset of symptoms was June 2019. 16:02 Method Of Arrival: Ambulatory iw 16:02 Acuity: CLAUDIA 3 iw Historical: - Allergies: 16:10 No Known Allergies; iw - Home Meds: 16:10 Lisinopril Oral [Active]; iw - PMHx: 16:10 CAD; High Cholesterol; Hypertension; iw - PSHx: 16:10 Heart stents; Knee surgery; arm surgery; Tonsillectomy; iw - Immunization history:: Adult Immunizations not up to date. - Social history:: Smoking status: Patient reports the use of cigarette tobacco products, smokes one pack cigarettes per day. Screenin:31 Abuse screen: Denies threats or abuse. Denies injuries from another. Nutritional jl7 screening: No deficits noted. Tuberculosis screening: No symptoms or risk factors identified. Fall Risk IV access (20 points). Total Arndt Fall Scale indicates No Risk (0-24 pts). Assessment: 15:50 General: Appears in no apparent distress. uncomfortable, Behavior is cooperative, jl7 appropriate for age, anxious. Pain: Denies pain. Neuro: Level of Consciousness is awake, alert, obeys commands, Oriented to person, place, time, situation. Cardiovascular: Patient's skin is warm and dry. Respiratory: Airway is patent Respiratory effort is even, unlabored, Respiratory pattern is regular, symmetrical. Derm: Skin is pink, warm \T\ dry. 18:40 Reassessment: Patient appears in no apparent distress at this time. Patient and/or ca1 family updated on plan of care and expected duration. Pain level reassessed. Patient is alert, oriented x 3, equal unlabored respirations, skin warm/dry/pink. 19:17 Reassessment: Patient appears in no apparent distress at this time. Patient states mg2 feeling better. Patient states symptoms have improved. Vital Signs: 16:02 BP 147 / 107; Pulse 112; Resp 18 S; Temp 98.7; Pulse Ox 98% on R/A; iw 16:31 BP 128 / 97; Pulse 101; Resp 14; Pulse Ox 97% on R/A; jl7 17:56 BP 145 / 100; Pulse 92; Resp 16 S; Pulse Ox 97% on R/A; ca1 18:19 BP 139 / 107; Pulse 99; Resp 18 S; Pulse Ox 96% on R/A; ca1 18:40 BP 151 / 99; Pulse 92; Resp 20 S; Pulse Ox 98% on R/A; ca1 19:17 BP 152 / 100; Pulse 84; Resp 18; Temp 98; Pulse Ox 100% on R/A; mg2 ED Course: 15:44 Patient arrived in ED. as 15:44 Jose De Jesus Stone PA is PHCP. [facility] 15:44 Zohaib Reis MD is Attending Physician. [facility] 15:50 Shahriar Terry, RN is Primary Nurse. jl7 16:06 EKG done, by ED staff, reviewed by Jose De Jesus MENDOZA. Patient maintains SpO2 saturation jp3 greater than 95% on room air. 16:07 Patient has correct armband on for positive identification. Placed in gown. Bed in low jp3 position. Call light in reach. Side rails up X 1. Warm blanket given. Verbal reassurance given. mammography supervisor on. Pulse ox on. NIBP on. 16:09 Triage completed. iw 16:10 Initial lab(s) drawn, by me, sent to lab. Inserted saline lock: 20 gauge in right jl7 antecubital area, using aseptic technique. Blood collected. 16:11 Arm band placed on. iw 16:21 Radiology exam delayed due to lab results not completed at this time. (BUN/Creatinine). bq 17:13 CT Head Brain wo Cont In Process Unspecified. EDMS 17:13 CT Head Angio In Process Unspecified. EDMS 17:13 CT Neck Angio In Process Unspecified. EDMS 19:06 Jah Jack MD is Referral Physician. [facility] 19:18 No provider procedures requiring assistance completed. IV discontinued, intact, mg2 bleeding controlled, No redness/swelling at site. Pressure dressing applied. Administered Medications: 17:59 Drug: Aspirin Chewable Tablet 324 mg Route: PO; jl7 19:18 Follow up: Response: No adverse reaction mg2 Outcome: 19:07 Discharge ordered by MD. jm 19:18 Discharged to home ambulatory. mg2 19:18 Condition: good 19:18 Discharge instructions given to patient, Instructed on discharge instructions, follow up and referral plans. medication usage, Demonstrated understanding of instructions, follow-up care, medications, Prescriptions given X 2. 19:19 Patient left the ED. mg2 Signatures: Dispatcher [employer] EDMS Jose De Jesus Stone PA PA m Mirlande Chaudhry Amelia as Williams, Irene, RN RN iw Shahriar Terry, RN RN jl7 Alexis Peguero RN RN mg2 Lawrence Mathur jp3 Elizabeth Villasenor RN RN ca1
[2019-08-29 19:34] VITALS: BP 152/100; TEMP 98; O2SAT 100
--- NOTE | 2019-08-30 16:24 | EKG ---
Test Date: 2019-08-29 Test Time: 15:59:55 [employer] Supervisor: SABRINA MEASUREMENT RESULTS: Intervals: Rate: 113 ND: 158 QRSD: 76 QT: 322 QTc: 441 Apex: P: 67 ND: 158 QRS: 2 T: 48 INTERPRETIVE STATEMENTS: Sinus tachycardia Otherwise normal ECG Compared to ECG 09/28/2018 19:16:14 Sinus rhythm no longer present Electronically Signed On 08-30-19 16:22:23 CDT by Stewart Crow
== END 2019-08-29 19:19 | disposition home or self-care (01) ==
LOC: ER 15:42
DX: I65.29 Occlusion and stenosis of unspecified carotid artery (principal); I10 Essential (primary) hypertension; F17.210 Nicotine dependence, cigarettes, uncomplicated
CPT/HCPCS: 36415; 70450; 70496; 70498; 80048; 80076; 82947; 83735; 83880; 84484; 85025; 85610; 93005; 99285; Q9967

== ENCOUNTER 2019-09-26 23:07 | Inpatient (IN) | payer SELFPAY ==
[2019-09-26 23:53] LABS: Protime INR 0.91
[2019-09-26 23:54] LABS: Absolute Lymphocytes (CBC) 3.2 K/uL (0.7-4.9); Basophils % 1.2 % (0-1.3); Hematocrit 45.2 % (39.6-49.0); Lymphocytes % 26.4 % (15.3-44.8); MPV 9.6 fL (7.6-11.3); RBC Red Blood Cell Count 5.05 M/uL (4.33-5.43)
[2019-09-27 00:17] LABS: ALT/SGPT 20 U/L (12-78); Albumin 3.3 g/dL (3.4-5.0); Alkaline Phosphatase 135 U/L (45-117); BUN Blood Urea Nitrogen 20 mg/dL (7-18); Bicarbonate 24 mmol/L (21-32); Bilirubin Direct < 0.1 mg/dL (0-0.2); Bilirubin Total 0.2 mg/dL (0.2-1.0); Glucose Level 140 mg/dL (74-106); NT PRO-BNP 118 pg/mL (<125); Protein, Total 7.3 g/dL (6.4-8.2); Sodium Level 141 mmol/L (136-145); Troponin (Emerg Dept Use Only) < 0.02 ng/mL (0.0-0.045)
[2019-09-27 00:18] LABS: AST/SGOT 15 U/L (15-37); Magnesium 2.2 mg/dL (1.8-2.4); Potassium 3.9 mmol/L (3.5-5.1)
--- NOTE | 2019-09-27 00:30 | EDPHYS ---
[facility] Name: Juan José Mcginnis Jr Age: 59 yrs Sex: Male : 1960 Arrival Date: 09/26/2019 Time: 23:10 Bed 6 Private MD: ED Physician Mervin Brown HPI: 09/25 23:26 This 59 yrs old Male presents to ER via Unassigned with complaints of Chest tw4 Pain. 23:26 The patient or guardian reports chest pain that is located primarily in the anterior tw4 chest wall, left. Onset: today. The pain does not radiate. Associated signs and symptoms: The patient has no apparent associated signs or symptoms. The chest pain is described as a heaviness. Duration: The patient or guardian reports a single episode. Modifying factors: The symptoms are alleviated by antacids, the symptoms are aggravated by activity. Historical: - Allergies: 23:43 No Known Allergies; rv - PMHx: 23:43 CAD; High Cholesterol; Hypertension; rv - PSHx: 23:43 Tonsillectomy; rv - Immunization history:: Adult Immunizations up to date. - Social history:: Smoking status: Patient reports the use of cigarette tobacco products, smokes one-half pack cigarettes per day. ROS: 23:26 Constitutional: Negative for fever, chills, and weight loss, Eyes: Negative for injury, tw4 pain, redness, and discharge, Respiratory: Negative for shortness of breath, cough, wheezing, and pleuritic chest pain, Abdomen/GI: Negative for abdominal pain, nausea, vomiting, diarrhea, and constipation, Back: Negative for injury and pain, MS/Extremity: Negative for injury and deformity, Skin: Negative for injury, rash, and discoloration, Neuro: Negative for headache, weakness, numbness, tingling, and seizure. 23:26 Cardiovascular: Positive for chest pain, Negative for edema, orthopnea, palpitations, paroxysmal nocturnal dyspnea. Exam: 23:26 Constitutional: This is a well developed, well nourished patient who is awake, alert, tw4 and in no acute distress. Head/Face: Normocephalic, atraumatic. Chest/axilla: Normal chest wall appearance and motion. Nontender with no deformity. No lesions are appreciated. Cardiovascular: Regular rate and rhythm with a normal S1 and S2. No gallops, murmurs, or rubs. Normal PMI, no JVD. No pulse deficits. Respiratory: Lungs have equal breath sounds bilaterally, clear to auscultation and percussion. No rales, rhonchi or wheezes noted. No increased work of breathing, no retractions or nasal flaring. Abdomen/GI: Soft, non-tender, with normal bowel sounds. No distension or tympany. No guarding or rebound. No evidence of tenderness throughout. Back: No spinal tenderness. No costovertebral tenderness. Full range of motion. MS/ Extremity: Pulses equal, no cyanosis. Neurovascular intact. Full, normal range of motion. Neuro: Awake and alert, GCS 15, oriented to person, place, time, and situation. Cranial nerves II-XII grossly intact. Motor strength 5/5 in all extremities. Sensory grossly intact. Cerebellar exam normal. Normal gait. Vital Signs: 23:26 BP 165 / 112; Pulse 115; Resp 19; Temp 98.1; Pulse Ox 99% ; Weight 97.52 kg; Height 5 rv ft. 9 in. (175.26 cm); 09/26 00:16 BP 143 / 102; Pulse 106; Resp 18; Pulse Ox 97% on R/A; mg2 01:06 BP 141 / 103; Pulse 108; Resp 18; Pulse Ox 98% on R/A; mg2 09/25 23:26 Body Mass Index 31.75 (97.52 kg, 175.26 cm) rv MDM: 09/25 23:13 Patient medically screened. tw4 09/26 00:29 Differential diagnosis: acute myocardial infarction, acute pericarditis, myocarditis, tw4 pancreatitis, peptic ulcer disease, pericarditis, pulmonary embolus, unstable angina. HEART Score: History: Moderately Suspicious (1), ECG: Non specific repolarization disturbance / LBTB / PM (1), Age: > 45 and < 65 years (1), Risk Factors: 1 or 2 risk factors (1), Troponin: > 1 and < 3 x normal limit (1). The patient was given aspirin in the Emergency Department. Data reviewed: vital signs, nurses notes. Data reviewed: lab test result(s), cardiac enzymes, CBC, electrolytes, EKG, radiologic studies, plain films. Data interpreted: color television console monitor: rhythm is normal sinus rhythm, Pulse oximetry: Interpretation: normal. Counseling: I had a detailed discussion with the patient and/or guardian regarding: the historical points, exam findings, and any diagnostic results supporting the discharge/admit diagnosis, lab results, radiology results. 09/25 23:15 Order name: Basic Metabolic Panel; Complete Time: 00:23 rust 09/26 00:23 Interpretation: Normal except: GLUC 140; GFR 58; BUN 20. tw 09/25 23:15 Order name: CBC with Diff; Complete Time: 00:23 rust 09/26 00:23 Interpretation: Normal except: WBC 12.1; PLT 139. tw 09/25 23:15 Order name: LFT's; Complete Time: 00:23 rust 09/26 00:23 Interpretation: Normal except: ALK 135; ALB 3.3; A/G 0.8; GLOB 4.0. rust 09/25 23:15 Order name: Magnesium; Complete Time: 00:23 rust 09/26 00:23 Interpretation: Normal except: MG 2.2. rust 09/25 23:15 Order name: NT PRO-BNP; Complete Time: 00:23 rust 09/26 00:23 Interpretation: Within normal limits: NT PRO-BNP 118. tw 09/25 23:15 Order name: PT-INR; Complete Time: 00:23 rust 09/26 00:23 Interpretation: Within normal limits: PT 10.7. tw 09/25 23:15 Order name: Troponin (emerg Dept Use Only); Complete Time: 00:23 rust 09/26 00:24 Interpretation: Within normal limits: TROPED < 0.02. rust 09/25 23:15 Order name: XRAY Chest (1 view) tw 09/26 00:38 Order name: CT Chest For PE Angio tw 09/26 00:52 Order name: Basic Metabolic Panel [facility] 09/26 00:52 Order name: Lipid Profile [facility] 09/26 00:52 Order name: Troponin I [facility] 09/26 00:53 Order name: CBC with Automated Diff [facility] 09/26 00:54 Order name: Troponin I [facility] 09/25 23:15 Order name: EKG; Complete Time: 23:15 rust 09/25 23:15 Order name: Cardiac monitoring; Complete Time: 23:45 tw4 09/25 23:15 Order name: EKG - Nurse/Tech; Complete Time: 23:45 tw4 09/25 23:15 Order name: IV Saline Lock; Complete Time: 23:45 tw4 09/25 23:15 Order name: Labs collected and sent; Complete Time: 23:45 tw4 09/25 23:15 Order name: O2 Per Protocol; Complete Time: 23:45 tw4 09/25 23:15 Order name: O2 Sat Monitoring; Complete Time: 23:45 tw4 09/26 00:53 Order name: CONS Physician Consult [facility] 09/26 00:53 Order name: Heart Healthy [facility] 09/26 00:53 Order name: Echo with Doppler [facility] 09/26 00:53 Order name: EKG Electrocardiogram [facility] 09/26 00:53 Order name: EKG Electrocardiogram [facility] EC/17 23:26 Rate is 113 beats/min. QRS [place] is Normal. MA interval is normal. QRS interval is tw4 normal. QT interval is normal. No Q waves. T waves are Normal. No ST changes noted. Clinical impression: Sinus tachycardia. Interpreted by me. Reviewed by me. Administered Medications: 09/26 00:42 Drug: NS 0.9% 1000 ml Route: IV; Rate: 1 bolus; Site: right antecubital; rv 00:57 Follow up: Response: No adverse reaction; IV Status: Completed infusion; IV Intake: mg2 1000ml 01:36 Follow up: IV Status: Completed infusion; IV Intake: 1000ml rv 01:34 Drug: Nitro-Bid Ointment 2 % 1 inches Route: Transdermal; Site: anterior chest wall; rv Disposition: 09/27/19 00:28 Hospitalization ordered by Mir Ramirez for Observation. Preliminary diagnosis is Angina pectoris, unspecified. - Bed requested for Telemetry/MedSurg (observation). - Status is Observation. mg2 - Condition is Stable. - Problem is new. - Symptoms have improved. Signatures: Dispatcher [employer] YUNWY Beverly Rodriguez, ELAN RN Mervin Brown MD MD tw4 Alexis Peguero RN RN mg2 Audie Damon RN RN rv Corrections: (The following items were deleted from the chart) 01:10 00:28 Hospitalization Ordered by Mir Ramirez MD for Observation. Preliminary cg diagnosis is Angina pectoris, unspecified. Bed requested for Telemetry/MedSurg (observation). Status is Observation. Condition is Stable. Problem is new. Symptoms have improved. tw4 01:59 01:10 09/27/2019 00:28 Hospitalization Ordered by Mir Ramirez MD for Observation. mg2 Preliminary diagnosis is Angina pectoris, unspecified. Bed requested for Telemetry/MedSurg (observation). Status is Observation. Condition is Stable. Problem is new. Symptoms have improved. cg
--- NOTE | 2019-09-27 00:30 | ER ---
Nurse's Notes [facility] Name: Juan José Mcginnis Jr Age: 59 yrs Sex: Male : 1960 Arrival Date: 09/26/2019 Time: 23:10 Bed 6 Private MD: Diagnosis: Angina pectoris, unspecified Presentation: 09/25 23:26 Chief complaint: Patient states: HAD CHEST PAIN 45 MINUTES AGO AFTER A FLIGHT OF STAIRS rv AND IT RESOLVED. 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 Coronavirus screen: Proceed with normal triage. Ebola Screen: No symptoms or risks identified at this time. Initial Sepsis Screen: Does the patient meet any 2 criteria? No. Patient's initial sepsis screen is negative. Does the patient have a suspected source of infection? No. Patient's initial sepsis screen is negative. Risk Assessment: Do you want to hurt yourself or someone else? Patient reports no desire to harm self or others. Onset of symptoms was September 26, 2019 at 22:45. 23:26 Method Of Arrival: Ambulatory rv 23:26 Acuity: CLAUDIA 3 rv Triage Assessment: 23:43 General: Appears comfortable, Behavior is calm, cooperative. Pain: Complains of pain in rv chest. Neuro: Level of Consciousness is awake, alert, obeys commands, Oriented to person, place, time, situation. Cardiovascular: Patient's skin is warm and dry. Rhythm is sinus tachycardia Chest pain quality is pressure, is located in left chest wall radiates to left arm(s) back. Respiratory: Airway is patent. Derm: Skin is intact. Historical: - Allergies: 23:43 No Known Allergies; rv - PMHx: 23:43 CAD; High Cholesterol; Hypertension; rv - PSHx: 23:43 Tonsillectomy; rv - Immunization history:: Adult Immunizations up to date. - Social history:: Smoking status: Patient reports the use of cigarette tobacco products, smokes one-half pack cigarettes per day. Screenin:44 Abuse screen: Denies threats or abuse. Denies injuries from another. Nutritional rv screening: No deficits noted. Tuberculosis screening: No symptoms or risk factors identified. Fall Risk None identified. Assessment: 23:45 Pain: Pain radiates to back and left arm Pain began 1 hour ago. rv 05/18 01:07 Reassessment: Patient appears in no apparent distress at this time. Patient and/or mg2 family updated on plan of care and expected duration. Pain level reassessed. Patient is alert, oriented x 3, equal unlabored respirations, skin warm/dry/pink. Vital Signs: 09/25 23:26 BP 165 / 112; Pulse 115; Resp 19; Temp 98.1; Pulse Ox 99% ; Weight 97.52 kg; Height 5 rv ft. 9 in. (175.26 cm); 09/26 00:16 BP 143 / 102; Pulse 106; Resp 18; Pulse Ox 97% on R/A; mg2 01:06 BP 141 / 103; Pulse 108; Resp 18; Pulse Ox 98% on R/A; mg2 09/25 23:26 Body Mass Index 31.75 (97.52 kg, 175.26 cm) rv ED Course: 09/25 23:10 Patient arrived in ED. mr 23:10 Alexis Peguero, RN is Primary Nurse. mg2 23:13 Mervin Brown MD is Attending Physician. tw4 23:30 Triage completed. rv 23:44 Arm band placed on Patient placed in the treatment room, on a stretcher, Patient rv notified of wait time. 23:44 Patient has correct armband on for positive identification. washroom attendant on. Pulse rv ox on. NIBP on. 23:44 No provider procedures requiring assistance completed. Initial lab(s) drawn, by me, rv sent to lab. Inserted saline lock: 18 gauge in right antecubital area, using aseptic technique. Blood collected. Patient maintains SpO2 saturation greater than 95% on room air. 09/26 00:20 XRAY Chest (1 view) In Process Unspecified. EDMS 00:28 Mir Ramirez MD is Hospitalizing Provider. tw4 01:12 IV is patent, with fluids infusing freely, with good blood return, Patient admitted, IV rv remains in place. Administered Medications: 00:42 Drug: NS 0.9% 1000 ml Route: IV; Rate: 1 bolus; Site: right antecubital; rv 00:57 Follow up: Response: No adverse reaction; IV Status: Completed infusion; IV Intake: mg2 1000ml 01:36 Follow up: IV Status: Completed infusion; IV Intake: 1000ml rv 01:34 Drug: Nitro-Bid Ointment 2 % 1 inches Route: Transdermal; Site: anterior chest wall; rv Intake: 00:57 IV: 1000ml; Total: 1000ml. mg2 01:36 IV: 1000ml; Total: 2000ml. rv Outcome: 00:28 Decision to Hospitalize by Provider. tw4 01:11 Admitted to Med/surg accompanied by tech, via wheelchair, room 222, on monitor, with rv chart, Report called to TRENT ANSARI 01:11 Condition: good 01:11 Instructed on the need for admit, Demonstrated understanding of instructions. 01:59 Patient left the ED. mg2 Signatures: Dispatcher [employer] EDMN Renetta Lehman Terrence, MD MD tw4 Alexis Peguero, RN RN mg2 Audie Damon RN RN rv
[2019-09-27] MEDS ORDERED: NA CHLORIDE 0.9% 1,000 ML ONE (00:47)
[2019-09-27] MEDS ORDERED: ALPRAZOLAM 0.25 MG TABLET PO PRN (00:48)
[2019-09-27] MEDS ORDERED: ACETAMINOPHEN 500 MG TAB PO PRN (00:48)
[2019-09-27] MEDS ORDERED: MORPHINE 4 MG/ML SYR IV PRN (00:48)
[2019-09-27] MEDS ORDERED: NITROGLYCERIN 0.4 MG/TAB SL ONE (01:33)
[2019-09-27] MEDS ORDERED: NITROGLYCERIN 1 GM PKT TD ONE (01:34)
[2019-09-27 02:06] VITALS: BMI 31.9
[2019-09-27 04:30] VITALS: BP 130/87; TEMP 98.1
[2019-09-27 05:10] LABS: Absolute Lymphocytes (CBC) 2.8 K/uL (0.7-4.9); Basophils % 0.2 % (0-1.3); Hematocrit 42.9 % (39.6-49.0); Lymphocytes % 25.3 % (15.3-44.8); MPV 9.8 fL (7.6-11.3); RBC Red Blood Cell Count 4.75 M/uL (4.33-5.43)
[2019-09-27 05:27] LABS: BUN Blood Urea Nitrogen 20 mg/dL (7-18); Bicarbonate 29 mmol/L (21-32); Glucose Level 110 mg/dL (74-106); HDL Cholesterol 34 mg/dL (40-60); LDL Cholesterol, Calculated 81 (<130); Potassium 4.8 mmol/L (3.5-5.1); Sodium Level 142 mmol/L (136-145); Troponin I < 0.02 ng/mL (0.0-0.045)
[2019-09-27] MEDS: METOPROLOL TAR 50 MG TAB PO SCH ×2 (05:31→08:28)
--- NOTE | 2019-09-27 07:38 | RAD REPORT ---
EXAM DESCRIPTION: RAD - Chest Single View - 09/27/2019 12:19 am CLINICAL HISTORY: CHEST PAIN COMPARISON: Portable 09/28/2018 TECHNIQUE: AP portable chest image was obtained 09/27/2019 12:19 am . FINDINGS: Lung volumes are low compared to the prior study. Interstitial pattern is prominent but no t substantially different from the prior study. This could be a baseline chronic interstitial lung pa ttern. They are recurrent interstitial edema or infiltrate would be possible. The baseline pattern manjarrez ch as this could mask early edema or infiltrate. No significant pulmonary edema or failure finding seen. Heart size is normal. No measurable pleural e ffusion and no pneumothorax. No acute bony abnormality seen. No acute aortic findings suspected. IMPRESSION: No peripheral mass or consolidation identifiable. No significant degree of failure or vo lume overload seen. Prominent interstitial lung pattern is accentuated by shallow inspiration. Pattern is not clearly dif ferent from comparison. Patient's baseline pattern could mask earliest stages of edema or infiltrate.
--- NOTE | 2019-09-27 08:21 | P.HP ---
Certification for Inpatient Patient admitted to: Observation With expected LOS: <2 Midnights Patient will require the following post-hospital care: None Practitioner: I am a practitioner with admitting privileges, knowledge of patient current condition, hospital course, and medical plan of care. Services: Services provided to patient in accordance with Admission requirements found in Title 42 Section 412.3 of the Code of Federal Regulations Patient History Date of Service: 09/27/19 Reason for admission: Chest pain rule out acute coronary syndrome History of Present Illness: Patient is a 59-year-old gentleman who recently had a stroke 3 weeks ago. 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 Patient also has a history of Coronary artery disease with prior stent placement. He also had atherosclerotic disease of she was other coronaries which she states were 60-70% occluded. These were not stented lower going to be monitored. This was done over 4 years ago. The only cardiac testing he is done with a year ago when he was in our hospital and he had a stress test and echocardiogram which were unremarkable. She also had a carotid Doppler done at that down which did not show significant occlusion. Surprisingly imaging studies of his left internal carotid showed complete occlusion this year. At this time, patient be admitted to the hospital and will Consult Cardiology for further evaluation. Patient may need arteriogram to further evaluate patient's history of atherosclerotic disease. Patient also has a history of tobacco abuse and will be counseled regarding tobacco cessation. Allergies No Known Allergies Allergy (Verified 09/27/19 02:22) Home Medications: Aspirin 81 mg PO DAILY 09/27/19 Atorvastatin Calcium [Lipitor*] 10 mg PO DAILY 09/27/19 Clopidogrel Bisulfate [Plavix*] 75 mg PO DAILY 09/27/19 Magnesium Chloride [Slow-Mag*] 1 tab PO BID 09/27/19 lisinopriL [Lisinopril] 40 mg PO DAILY 09/27/19 - Past Medical/Surgical History Has patient received pneumonia vaccine in the past: No Diabetic: No -: HLD -: HTN -: CAD -: Stent placement 6 yr ago -: tonsilectomy -: Elvis Knee Sx -: Rt wrist Sx - Family History Father Medical History: Heart disease, Hypertension Mother Medical History: Heart disease - Social History Smoking Status: Current some day smoker Alcohol use: No Caffeine use: Yes Place of Residence: Home Review of Systems 10-point ROS is otherwise unremarkable Physical Examination - Vital Signs Temperature: 98.1 F Blood Pressure: 130/87 Pulse: 99 Respirations: 18 Pulse Ox (%): 95 - Physical Exam General: Alert, In no apparent distress, Oriented x3 HEENT: Atraumatic, PERRLA, Mucous membr. moist/pink, EOMI, Sclerae nonicteric Neck: Supple, 2+ carotid pulse no bruit, No LAD, Without JVD or thyroid abnormality Respiratory: Clear to auscultation bilaterally, Normal air movement Cardiovascular: Regular rate/rhythm, Normal S1 S2, No murmurs Gastrointestinal: Normal bowel sounds, Soft and benign, Non-distended, No tenderness Musculoskeletal: No clubbing, No swelling, No tenderness Integumentary: No rashes Neurological: Normal gait, Normal speech, Normal strength at 5/5 x4 extr, Normal tone, Sensation intact, Cranial nerves 3-12 intact, Normal affect Lymphatics: No axilla or inguinal lymphadenopathy - Studies Laboratory Data (last 24 hrs) 09/26/19 23:40: PT 10.7, INR 0.91 09/26/19 23:40: WBC 12.1 H, Hgb 15.3, Hct 45.2, Plt Count 139 L 09/26/19 23:40: Sodium 141, Potassium 3.9, BUN 20 H, Creatinine 1.28, Glucose 1 40 H, Magnesium 2.2, Total Bilirubin 0.2, AST 15, ALT 20, Alkaline Phosphatase 135 H Assessment & Plan - Problems (Diagnosis) (1) History of stroke Current Visit: Yes Status: Acute (2) History of cerebrovascular accident from left carotid artery occlusion involving left middle cerebral artery territory Current Visit: Yes Status: Acute (3) History of coronary artery stent placement Current Visit: Yes Status: Acute (4) Chest pain, rule out acute myocardial infarction Current Visit: No Status: Acute (5) History of coronary artery disease Current Visit: No Status: Acute (6) Hypertension Current Visit: No Status: Chronic Qualifiers: (7) Tobacco abuse Current Visit: No Status: Chronic - Plan 1. Serial troponins and EKG 2. Cardiology consultation 3. Echocardiogram and stress test if cardiology is agreeable 4. Anti-platelet therapy, anti coagulation, beta-deepa, statin, and O2 as needed 5. IV morphine for pain 6. Nitro p.r.n. 7. Consult Neurology for further evaluation of recent stroke 8. GI and DVT prophylaxis Discharge Plan: Home Plan to discharge in: Greater than 2 days - Advance Directives Does patient have a Living Will: No Does patient have a Durable POA for Healthcare: No - Code Status/Comfort Care Code Status Assessed: Yes Code Status: Full Code Critical Care: No Time Spent Managing PTS Care (In Minutes): 45
[2019-09-27] MEDS ORDERED: REGADENOSON 0.4 MG/5 ML SYR IV ONE (08:23)
[2019-09-27] MEDS ORDERED: ENOXAPARIN 40 MG/0.4 ML SQ SCH (09:00)
[2019-09-27] MEDS ORDERED: ATORVASTATIN 10 MG TAB PO SCH (09:00)
[2019-09-27] MEDS ORDERED: MAGNESIUM CHLORIDE 64 MG TAB PO SCH (09:00)
[2019-09-27] MEDS ORDERED: CLOPIDOGREL 75 MG TABLET PO SCH (09:00)
[2019-09-27] MEDS ORDERED: lisinopriL 20 MG TAB PO SCH (09:00)
[2019-09-27] MEDS ORDERED: ASPIRIN EC 81 MG TAB PO SCH (09:00)
[2019-09-27 09:32] VITALS: O2SAT 95
--- NOTE | 2019-09-27 10:34 | CON ---
Date of Consultation: 09/27/2019 Admitted to [facility]'s service on 09/27/2019. I saw the patient on 09/27/2019. Reason For Consultation: Chest pain. History Of Present Illness: Mr. Mcginnis is a 59-year-old white male, had a stent 6 years ago. Also, has known 100% occlusion of his left common carotid artery. Has hypertension, dyslipidemia. Does no t follow up with any physician and goes to the emergency room from time to time so he get his medicat ions refilled. I am not so sure what else he takes, but he is supposed to be on aspirin, Lipitor, Pl avix, magnesium and lisinopril. The patient has chronic stable angina. Yesterday, he got excited af ter he fell while mowing his yard and he developed chest pain that lasted about an hour. By the time he came to the emergency room, his pain has resolved. His EKG, troponin, BNP, and x-rays are negati ve. CT angiogram of his chest is negative. Echocardiogram and stress tests have been ordered. His last echo was normal in September of 2018. His last stress test was normal in September of 2018. Allergies: NONE. Review of Systems: Negative. Social History: Negative. Family History: Noncontributory. Medications: Listed earlier. Physical Examination: Vital Signs: Stable. Afebrile. HEENT: Negative. Neck: Supple with no bruit. Chest: Clear. Cardiac: Regular rhythm and rate. No murmurs, gallops, or rubs. Abdomen: Benign. Extremities: No clubbing, cyanosis, or edema. Diagnostic Data: All within normal limits. Impression And Plan: 1.Coronary artery disease, status post stent 6 years ago. Normal workup a year ago. We will receiv e the echo and stress test today. His pain has resolved. Troponin is negative. 2.Peripheral vascular disease, 100% left common carotid artery in August 2019, that needs to be follo wed up at least once a year. 3.Hypertension. 4.Dyslipidemia. We will see what the test first shows before making further decisions. I suggested to Mr. Mcginnis that he get a routine physician to follow him, Cardiology as well as Internal Medicine or Family Practice. MARI/VINICIUS Voice ID: [id number] Report ID: [id number]
--- NOTE | 2019-09-27 11:28 | RAD REPORT ---
EXAM DESCRIPTION: CT - Chest For Pe Angio - 09/27/2019 1:35 am CLINICAL HISTORY: CHEST PAIN COMPARISON: None. TECHNIQUE: CT CHEST ANGIOGRAPHY WITH IV CONTRAST on 09/27/2019 12:38 AM CDT. MIPS reconstructions wer e generated. This exam was performed according to our departmental dose-optimization program, which includes autom ated exposure control, adjustment of the mA and/or kV according to patient size and/or use of iterati ve reconstruction technique. MIP images were generated. FINDINGS: Thoracic aorta is normal in course and caliber without aneurysm or dissection. Pulmonary a rteries are adequately opacified without acute or chronic filling defects. The heart is mildly enlarged. There is no pericardial effusion. Intrathoracic lymph nodes are not enl arged. There is no pleural effusion, pleural thickening or pneumothorax. Central airways are patent. There i s minimal upper lung paraseptal emphysema. There are no acute abnormalities within the limited images of the upper abdomen. There are no acute osseous findings. No suspicious bony lesions. IMPRESSION: Mild cardiomegaly with no aortic dissection or aneurysm. No pulmonary embolus. No pneumonia. Electronically signed by: Jamal Antonio MD 09/27/2019 1:37 AM CDT Due to temporary technical issues with the PACS/Fluency reporting system, reports are being signed by the in house radiologist as a courtesy to ensure prompt reporting. The interpreting radiologist is f ully responsible for the content of the report.
--- NOTE | 2019-09-27 12:25 | RAD REPORT ---
EXAM DESCRIPTION: NM - Rest Stress Cardiac Imaging - 09/27/2019 12:14 pm CLINICAL HISTORY: Chest pain COMPARISON: September 2018 TECHNIQUE: The patient was administered approximately 10 mCi of Tc 99m Sestamibi prior to resting SP ECT imaging of the heart. The patient was then administered approximately 30 mCi of Tc 99m Sestamibi following exercise or pharmacologic stress. Multiplanar SPECT images were reviewed. FINDINGS: The end diastolic volume is 130 ml, the end systolic volume is 77 ml, and the ejection fra ction is 41 %. Ventricular volumes and ejection fraction are not substantially different from the [facility] parison. No stress-induced ischemic changes identifiable. Lateral wall fixed defect at the apex detailed on th e prior study is not clearly seen on the current study. There is decreased activity along the length of the inferior wall unchanged between rest and stress imaging. Inferior wall pattern is unchanged f rom the prior study. IMPRESSION: No stress-induced ischemic change identified. Fixed inferior wall defect is similar to the September 2018 study. This could be scarring, attenuation bravo fact or a combination. End-diastolic volume is increased at 130 mL with a 41% ejection fraction. These values are relatively similar to September 2018.
--- NOTE | 2019-09-27 13:50 | P.DS ---
Admission Date: 09/27/19 Discharge Date: 09/27/19 Primary Care Provider: none Disposition: ROUTINE DISCHARGE Discharge Condition: GOOD Reason for Admission: Chest pain rule out acute coronary syndrome Consultations: Cardiology-Dr. Crow Procedures: CT Scan: FINDINGS: Thoracic aorta is normal in course and caliber without aneurysm or dissection. Pulmonary arteries are adequately opacified without acute or chronic filling defects. The heart is mildly enlarged. There is no pericardial effusion. Intrathoracic lymph nodes are not enlarged. There is no pleural effusion, pleural thickening or pneumothorax. Central airways are patent. There is minimal upper lung paraseptal emphysema. There are no acute abnormalities within the limited images of the upper abdomen. There are no acute osseous findings. No suspicious bony lesions. IMPRESSION: Mild cardiomegaly with no aortic dissection or aneurysm. No pulmonary embolus. No pneumonia. Stress test: COMPARISON: September 2018 TECHNIQUE: The patient was administered approximately 10 mCi of Tc 99m Sestamibi prior to resting SPECT imaging of the heart. The patient was then administered approximately 30 mCi of Tc 99m Sestamibi following exercise or pharmacologic stress. Multiplanar SPECT images were reviewed. FINDINGS: The end diastolic volume is 130 ml, the end systolic volume is 77 ml, and the ejection fraction is 41 %. Ventricular volumes and ejection fraction are not substantially different from the comparison. No stress-induced ischemic changes identifiable. Lateral wall fixed defect at the apex detailed on the prior study is not clearly seen on the current study. There is decreased activity along the length of the inferior wall unchanged between rest and stress imaging. Inferior wall pattern is unchanged from the prior study. IMPRESSION: No stress-induced ischemic change identified. Fixed inferior wall defect is similar to the September 2018 study. This could be scarring, attenuation artifact or a combination. End-diastolic volume is increased at 130 mL with a 41% ejection fraction. These values are relatively similar to September 2018. Medical Problem List: Chest pain with history of CAD Hypertension Hyperlipidemia Tobacco abuse Peripheral vascular disease Brief History of Present Illness: 59-year-old male with history of CAD, peripheral vascular disease, hyperlipidemia and hypertension. Patient presented with chest pain. Patient was admitted for further evaluation. Patient had been without his medication. Hospital Course: Patient presented with chest pain. Cardiac enzymes unremarkable. Patient with underlying history of CAD with prior stent, peripheral vascular disease with 100% left common carotid artery stenosis, hypertension, tobacco abuse and hyperlipidemia. Patient was monitored and evaluated. Cardiology was consulted. Cardiology recommended cardiac stress test to further evaluate. Cardiac stress test performed showed no stress-induced ischemia. Ejection fraction around 41%. At discharge patient without significant chest pain, nausea or vomiting. Case discussed at length with cardiology. Cardiology recommends compliance with medication and follow up. At discharge patient will continue with aspirin 81 mg daily, Lipitor 40 mg daily, Plavix 75 mg daily, lisinopril 40 mg daily, metoprolol 25 mg 1 pill twice daily, and nitroglycerin to be use as needed for chest pain. At discharge patient will need a follow up with cardiology in 1-2 weeks to follow up this hospitalization. Compliance with medication and follow up readdressed. Patient with underlying tobacco abuse. At discharge patient will be provided nicotine patch 1 pill daily. Education provided. Further adjustment in patch can be addressed by his PCP. Patient with underlying hypertension and hyperlipidemia as stated above. At discharge patient will continue with lisinopril 40 mg daily, metoprolol 25 mg 1 pill daily, and Lipitor 40 mg daily. Recommend follow up with PCP to establish care and follow up. Recommend follow up with cardiology as directed.. Vital Signs/Physical Exam: Temp Pulse Resp BP Pulse Ox 98.1 F 99 H 18 130/87 95 09/27/19 08:21 09/27/19 08:21 09/27/19 08:21 09/27/19 08:21 09/27/19 08:21 General: Alert, In no apparent distress, Oriented x3, Cooperative HEENT: Atraumatic Neck: Supple Respiratory: Clear to auscultation bilaterally, Normal air movement Cardiovascular: Normal pulses, Regular rate/rhythm Gastrointestinal: Normal bowel sounds, Soft and benign, Non-distended, No tenderness, No masses, No rebound, No guarding Integumentary: No erythema, No warmth, No cyanosis Neurological: Normal speech, Normal strength at 5/5 x4 extr, Normal tone, Normal affect Laboratory Data at Discharge: WBC 11.0 K/uL (4.3-10.9) H 09/27/19 04:51 Hgb 14.2 g/dL (13.6-17.9) 09/27/19 04:51 Hct 42.9 % (39.6-49.0) 09/27/19 04:51 Plt Count 136 K/uL (152-406) L 09/27/19 04:51 PT 10.7 SECONDS (9.5-12.5) 09/26/19 23:40 INR 0.91 09/26/19 23:40 Sodium 142 mmol/L (136-145) 09/27/19 04:51 Potassium 4.8 mmol/L (3.5-5.1) 09/27/19 04:51 BUN 20 mg/dL (7-18) H 09/27/19 04:51 Creatinine 1.00 mg/dL (0.55-1.3) 09/27/19 04:51 Glucose 110 mg/dL (74-106) H 09/27/19 04:51 Magnesium 2.2 mg/dL (1.8-2.4) 09/26/19 23:40 Total Bilirubin 0.2 mg/dL (0.2-1.0) 09/26/19 23:40 AST 15 U/L (15-37) 09/26/19 23:40 ALT 20 U/L (12-78) 09/26/19 23:40 Alkaline Phosphatase 135 U/L (45-117) H 09/26/19 23:40 Troponin I < 0.02 ng/mL (0.0-0.045) 09/27/19 12:58 Triglycerides Cancelled 09/27/19 06:00 Cholesterol Cancelled 09/27/19 06:00 HDL Cholesterol Cancelled 09/27/19 06:00 Cholesterol/HDL Ratio Cancelled 09/27/19 06:00 Home Medications: Aspirin 81 mg PO DAILY #90 tab.chew 09/27/19 Atorvastatin Calcium [Lipitor] 40 mg PO DAILY #30 tablet 09/27/19 Clopidogrel Bisulfate [Plavix*] 75 mg PO DAILY #30 09/27/19 Magnesium Chloride [Slow-Mag*] 1 tab PO BID #60 tab 09/27/19 Metoprolol Tartrate 25 mg PO BID #60 tablet 09/27/19 Nicotine [Nicoderm] 1 patch TD DAILY #30 patch.td24 09/27/19 Nitroglycerin 0.4 mg SL SEECOM #1 bottle 09/27/19 lisinopriL [Lisinopril] 40 mg PO DAILY #30 09/27/19 New Medications: Aspirin 81 mg PO DAILY #90 tab.chew Atorvastatin Calcium [Lipitor] 40 mg PO DAILY #30 tablet lisinopriL [Lisinopril] 40 mg PO DAILY #30 Metoprolol Tartrate 25 mg PO BID #60 tablet Nicotine [Nicoderm] 1 patch TD DAILY #30 patch.td24 Nitroglycerin 0.4 mg SL SEECOM #1 bottle Clopidogrel Bisulfate [Plavix*] 75 mg PO DAILY #30 Magnesium Chloride [Slow-Mag*] 1 tab PO BID #60 tab Patient Discharge Instructions: 1. Recommend follow up with PCP to follow up and establish care. 2. Patient presented with chest pain. Cardiac enzymes unremarkable. Patient with underlying history of CAD with prior stent, peripheral vascular disease with 100% left common carotid artery stenosis, hypertension, tobacco abuse and hyperlipidemia. Patient was monitored and evaluated. Cardiology was consulted. Cardiology recommended cardiac stress test to further evaluate. Cardiac stress test performed showed no stress- induced ischemia. Ejection fraction around 41%. At discharge patient without significant chest pain, nausea or vomiting. Case discussed at length with cardiology. Cardiology recommends compliance with medication and follow up. At discharge patient will continue with aspirin 81 mg daily, Lipitor 40 mg daily, Plavix 75 mg daily, lisinopril 40 mg daily, metoprolol 25 mg 1 pill twice daily, and nitroglycerin to be use as needed for chest pain. At discharge patient will need a follow up with cardiology in 1-2 weeks to follow up this hospitalization. Compliance with medication and follow up readdressed. 3. Patient with underlying tobacco abuse. At discharge patient will be provided nicotine patch 1 pill daily. Education provided. Further adjustment in patch can be addressed by his PCP. 4. Patient with underlying hypertension and hyperlipidemia as stated above. At discharge patient will continue with lisinopril 40 mg daily, metoprolol 25 mg 1 pill daily, and Lipitor 40 mg daily. Recommend follow up with PCP to establish care and follow up. Recommend follow up with cardiology as directed.. Diet: AHA Activity: Ad tariq Time spent managing pt's care (in minutes): 55
--- NOTE | 2019-09-28 07:03 | EKG ---
Test Date: 2019-09-26 Test Time: 23:24:42 Publication Editor: RV MEASUREMENT RESULTS: Intervals: Rate: 113 PA: 170 QRSD: 76 QT: 326 QTc: 447 [place]: P: 68 PA: 170 QRS: -19 T: 41 INTERPRETIVE STATEMENTS: Sinus tachycardia Otherwise normal ECG Compared to ECG 08/29/2019 15:59:55 No significant changes Electronically Signed On 09-28-19 07:00:26 CDT by Stewart Crow
--- NOTE | 2019-09-28 09:04 | ECHO ---
HEIGHT: 5 ft 9 in WEIGHT: 216 lb 4.8 oz DATE OF STUDY: 09/27/[address]: Mir Ramirez MD 2-DIMENSIONAL: YES M.MODE: YES DOPPLER: YES COLOR FLOW: YES TDS: PORTABLE: DEFINITY: BUBBLE STUDY: DIAGNOSIS: CHEST PAIN, RULE OUT ACUTE CORONARY SYNDROME CARDIAC HISTORY: CATHERIZATION: YES SURGERY: NO PROSTHETIC VALVE: NO PACEMAKER: NO MEASUREMENTS (cm) DIASTOLIC (NORMALS) SYSTOLIC (NORMALS) IVSd 1.2 (0.6-1.2) LA Diam 3.3 (1.9-4.0) LVEF 61% LVIDd 4.0 (3.5-5.7) LVIDs 2.7 (2.0-3.5) %FS 32% LVPWd 1.2 (0.6-1.2) Ao Diam 3.4 (2.0-3.7) 2 DIMENSIONAL ASSESSMENT: RIGHT ATRIUM: NORMAL LEFT ATRIUM: NORMAL RIGHT VENTRICLE: NORMAL LEFT VENTRICLE: NORMAL TRICUSPID VALVE: NORMAL MITRAL VALVE: NORMAL PULMONIC VALVE: NORMAL AORTIC VALVE: NORMAL PERICARDIAL EFFUSION: NONE AORTIC ROOT: NORMAL LEFT VENTRICULAR WALL MOTION: DOPPLER/COLOR FLOW: COMMENTS: NORMAL 2-DIMENSIONAL ECHOCARDIOGRAM WITH DOPPLER. NO WALL MOTION ABNORMALITY. NO EFFUSION. TECHNOLOGIST: EMILIE CROCKER
--- NOTE | 2019-09-28 09:38 | TREADPHA ---
DX: CHEST PAIN, CORNARY ARTERY DISEASE Date of Study: 09/27/2019 Ht: 5' 9 " Wt: 216 lb 4.8 oz Consulting Physician: ALIX MEDICATIONS: TYLENOL, XANAX, ASPIRIN, LOVENOX, LOPRESSOR HISTORY: 59 YEAR OLD MALE WITH COMPLIANTS OF CHEST PAIN. MEDICAL HISTORY OF HYPERTENSION, DYSLIPIDEMIA, POSITIVE SMOKER. PHYSICIAL EXAMINATION: RESTING B.P.: 142/105 RESTING H.R.: 84 RESTING EKG: NORMAL PROTOCOL: PHARMACOLOGIC EXERCISE TIME: 3:30 B.P. AT PEAK STRESS: 164/111 IMPRESSION: LEXISCAN INJECTED, CARDIOLITE INJECTED PER PROTOCOL. SEE NUCLEAR MEDICINE REPORT. NO SUPRAVENTRICULAR TACHYCARDIA. NO VENTRICULAR TACHYCARDIA. NO PREMATURE VENTRICULAR COMPLEXES. DENIED CHEST PAIN.
== END 2019-09-27 16:03 | disposition home or self-care (01) | DRG 313 ==
LOC: ER 23:07 → ERHOLD 09-27 01:03 → OBSVTOIN 09-27 01:03 → 2ND 09-27 01:11
PROVIDERS: ADMIT Hospitalist; ATTEND Hospitalist
DX: R07.9 Chest pain, unspecified (principal); I25.10 Atherosclerotic heart disease of native coronary artery without angina pectoris; I10 Essential (primary) hypertension; E78.5 Hyperlipidemia, unspecified; I73.9 Peripheral vascular disease, unspecified; F17.200 Nicotine dependence, unspecified, uncomplicated; Z95.5 Presence of coronary angioplasty implant and graft; Z79.82 Long term (current) use of aspirin; Z79.899 Other long term (current) drug therapy; Z79.02 Long term (current) use of antithrombotics/antiplatelets; Z86.73 Personal history of transient ischemic attack (TIA), and cerebral infarction without residual deficits
CPT/HCPCS: 36415; 71045; 71275; 78452; 80048; 80061; 80076; 83735; 83880; 84484; 85025; 85610; 93005; 93017; 93306; 99285; A9500; J1650; J2785; J7030; Q9967

== ENCOUNTER 2019-10-06 04:36 | Emergency (ER) | payer SELFPAY ==
[2019-10-06] MEDS ORDERED: LABETALOL HCL 100 MG TAB ONE (05:35)
--- NOTE | 2019-10-06 08:29 | RAD REPORT ---
EXAM DESCRIPTION: RAD - Chest Single View - 10/06/2019 7:33 am CLINICAL HISTORY: SOB Chest pain. COMPARISON: Chest Single View dated 09/26/2019; Chest Single View dated 09/28/2018 FINDINGS: Portable technique limits examination quality. The lungs are grossly clear. The heart is upper limit normal in size. No displaced fractures. IMPRESSION: No acute intrathoracic process suspected.
[2019-10-06 09:24] LABS: Protime INR 0.91
[2019-10-06 09:25] LABS: Absolute Lymphocytes (CBC) 3.1 K/uL (0.7-4.9); Hematocrit 45.5 % (39.6-49.0); Lymphocytes % 26.6 % (15.3-44.8); RBC Red Blood Cell Count 5.06 M/uL (4.33-5.43)
--- NOTE | 2019-10-06 11:13 | RAD REPORT ---
EXAM DESCRIPTION: CT head without IV contrast CLINICAL HISTORY: Elevated blood pressure, dizziness TECHNIQUE: Multiple axial CT images of the brain were performed followed by sagittal and coronal rec onstructed images. The CT study is performed according to ALARA (as low as reasonably achievable) or ALARA/IMAGE GENTLY, with automatic adjustment of mA and/or kV according to patient size. Performed on: 10/06/2019 at 5:32 AM COMPARISON: 08/29/2019. FINDINGS: There is no evidence of mass, acute mass effect or midline shift. There are no acute extra -axial fluid collections. There is no evidence of acute intracranial hemorrhage. The cerebral sulci and ventricles are normal in size and configuration. There are scattered areas of decreased attenuation within the subcortical and periventricular white m atter most likely due to mild chronic microangiopathy. There is mild left frontal lobe encephalomalac ia similar when compared to the prior study. There is mild to moderate mucosal thickening of the ethmoid sinuses. The mastoid air cells are clear. The orbital contents are grossly unremarkable. No acute osseous abnormalities are identified. No focal soft tissue abnormalities are identified. IMPRESSION: 1. There is no evidence of acute intracranial pathology. 2. 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 3. Mild to moderate mucosal thickening of the ethmoid sinuses. Electronically signed by: Yessenia Ibarra DO 10/06/2019 6:02 AM CDT Due to temporary technical issues with the PACS/Fluency reporting system, reports are being signed by the in house radiologist as a courtesy to ensure prompt reporting. The interpreting radiologist is f ully responsible for the content of the report.
[2019-10-06 11:16] LABS: ALT/SGPT 17 U/L (12-78); AST/SGOT 11 U/L (15-37); Alkaline Phosphatase 126 U/L (45-117); BUN Blood Urea Nitrogen 17 mg/dL (7-18); Bicarbonate 26 mmol/L (21-32); Bilirubin Total 0.3 mg/dL (0.2-1.0); Glucose Level 98 mg/dL (74-106); Sodium Level 141 mmol/L (136-145)
[2019-10-06 11:17] LABS: Albumin 3.3 g/dL (3.4-5.0); Bilirubin Direct < 0.1 mg/dL (0-0.2); Protein, Total 7.1 g/dL (6.4-8.2)
[2019-10-06 11:19] LABS: Magnesium 2.2 mg/dL (1.8-2.4); NT PRO-BNP 92 pg/mL (<125); Troponin I < 0.02 ng/mL (0.0-0.045)
--- NOTE | 2019-10-06 12:51 | EKG ---
Test Date: 2019-10-06 Test Time: 05:47:48 Joint Supervisor: MABEL MEASUREMENT RESULTS: Intervals: Rate: 81 MI: 174 QRSD: 76 QT: 368 QTc: 427 [place]: P: 57 MI: 174 QRS: -16 T: 5 INTERPRETIVE STATEMENTS: Normal sinus rhythm Normal ECG Compared to ECG 09/26/2019 23:24:42 Sinus tachycardia no longer present Electronically Signed On 10-06-19 12:50:09 CDT by Stewart Crow
[2019-10-06 13:47] VITALS: TEMP 98.3; O2SAT 98
[2019-10-06 13:50] VITALS: BP 142/102
--- NOTE | 2019-10-11 14:15 | ER ---
Nurse's Notes [facility] Name: Juan José Mcginnis Jr Age: 59 yrs Sex: Male : 1960 Arrival Date: 10/06/2019 Time: 04:39 Bed 5 Private MD: Diagnosis: Essential (primary) hypertension Presentation: 10/05 04:47 Chief complaint: Patient states: I WOKE UP AT 130AM AND I DON'T FEEL RIGHT. I FELT rv INDIGESTION BUT I WAS ABLE TO MOVE BOWELS. AND I CHECKED MY BLOOD PRESSURE AND IT IS HIGH. MY NEUROLOGIST WANTED MY BLOOD PRESSURE TO GO UP THAT IS WHY HE SAID TO TAKE MY BLOOD PRESSURE NEEDED ONLY. Coronavirus screen: Proceed with normal triage. Ebola Screen: No symptoms or risks identified at this time. Initial Sepsis Screen: Does the patient meet any 2 criteria? No. Patient's initial sepsis screen is negative. Does the patient have a suspected source of infection? No. Patient's initial sepsis screen is negative. Risk Assessment: Do you want to hurt yourself or someone else? Patient reports no desire to harm self or others. Onset of symptoms was October 06, 2019 at 01:30. 04:47 Method Of Arrival: Ambulatory rv 04:47 Acuity: CLAUDIA 3 rv Triage Assessment: 04:51 General: Appears uncomfortable, Behavior is calm, cooperative. Pain: Denies pain. EENT: rv No signs and/or symptoms were reported regarding the EENT system. Neuro: Level of Consciousness is awake, alert, obeys commands, Oriented to person, place, time, situation. Cardiovascular: Patient's skin is warm and dry. Respiratory: Airway is patent Respiratory effort is even, unlabored, Breath sounds are clear bilaterally. Derm: Skin is intact. Historical: - Allergies: 04:51 No Known Allergies; rv - PMHx: 04:51 Hypertension; CAD; Emphysema; CAROTID ARTERY, OCCLUDED; rv - PSHx: 04:51 Heart stents; rv - Immunization history:: Adult Immunizations unknown. - Social history:: Smoking status: Patient reports the use of cigarette tobacco products, smokes one-half pack cigarettes per day, Patient/guardian denies using alcohol, street drugs, The patient lives with family. - Family history:: not pertinent. Screenin:52 Abuse screen: Denies threats or abuse. Denies injuries from another. Nutritional rv screening: No deficits noted. Tuberculosis screening: No symptoms or risk factors identified. Fall Risk None identified. Assessment: 05:20 General: Appears in no apparent distress. Behavior is calm, cooperative, appropriate ea for age. Pain: Denies pain. Neuro: Level of Consciousness is awake, alert, obeys commands, Oriented to person, place, time. Respiratory: Airway is patent Respiratory effort is even, unlabored, Respiratory pattern is regular, symmetrical. Derm: Skin is pink, warm \T\ dry. 06:00 Reassessment: Patient and/or family updated on plan of care and expected duration. Pain ea level reassessed. Patient is alert, oriented x 3, equal unlabored respirations, skin warm/dry/pink. Vital Signs: 04:47 BP 194 / 115; Pulse 88; Resp 16; Temp 98.3; Pulse Ox 98% ; Weight 97.52 kg; Height 5 rv ft. 9 in. (175.26 cm); Pain 0/10; 05:43 BP 157 / 104; Pulse 81; Resp 19; Pulse Ox 98% ; rv 06:26 BP 142 / 102; Pulse 82; Resp 16; Pulse Ox 98% on R/A; rv 04:47 Body Mass Index 31.75 (97.52 kg, 175.26 cm) rv ED Course: 04:39 Patient arrived in ED. sg 04:47 Audie Damon, RN is Primary Nurse. rv 04:50 Triage completed. rv 04:51 Arm band placed on Patient placed in the treatment room, on a stretcher, Patient rv notified of wait time. 04:52 Patient has correct armband on for positive identification. Pulse ox on. NIBP on. rv 05:12 Mir Marroquin MD is Attending Physician. ma2 05:15 Inserted saline lock: 20 gauge in right antecubital area, using aseptic technique. ea Blood collected. 05:46 No provider procedures requiring assistance completed. rv 05:49 EKG done, by ED staff, reviewed by Mir Marroquin MD. ds4 06:27 IV discontinued, intact, bleeding controlled, No redness/swelling at site. Pressure rv dressing applied. Administered Medications: 06:21 Not Given (d c): Labetalol 100 mg PO once ma2 Outcome: 06:20 Discharge ordered by MD. ma2 06:27 Discharged to home ambulatory. rv 06:27 Condition: good 06:27 Discharge instructions given to patient, Instructed on discharge instructions, follow up and referral plans. Demonstrated understanding of instructions, follow-up care. 06:27 Patient left the ED. rv Signatures: Justino Allen, RN RN Jak Dunne ds4 Melinda Brown RN RN Mir Bentley MD MD ma2 Audie Damon RN RN rv
--- NOTE | 2019-10-11 14:15 | EDPHYS ---
Physician Documentation [facility] Name: Juan José Mcginnis Jr Age: 59 yrs Sex: Male : 1960 Arrival Date: 10/06/2019 Time: 04:39 Bed 5 Private MD: ED Physician Mir Marroquin HPI: 10/05 05:18 This 59 yrs old Male presents to ER via Ambulatory with complaints of Doesn't Feel ma2 Right. 05:18 Onset: The symptoms/episode began/occurred gradually, 2 day(s) ago. Severity of ma2 symptoms: At their worst the symptoms were mild in the emergency department the symptoms have improved. The patient has not experienced similar symptoms in the past. he feels bs is high. Historical: - Allergies: 04:51 No Known Allergies; rv - PMHx: 04:51 Hypertension; CAD; Emphysema; CAROTID ARTERY, OCCLUDED; rv - PSHx: 04:51 Heart stents; rv - Immunization history:: Adult Immunizations unknown. - Social history:: Smoking status: Patient reports the use of cigarette tobacco products, smokes one-half pack cigarettes per day, Patient/guardian denies using alcohol, street drugs, The patient lives with family. - Family history:: not pertinent. ROS: 05:18 Constitutional: Negative for fever, chills, and weight loss. ma2 05:18 All other systems are negative. Exam: 05:18 Constitutional: This is a well developed, well nourished patient who is awake, alert, ma2 and in no acute distress. Head/Face: Normocephalic, atraumatic. Eyes: Pupils equal round and reactive to light, extra-ocular motions intact. Lids and lashes normal. Conjunctiva and sclera are non-icteric and not injected. Cornea within normal limits. Periorbital areas with no swelling, redness, or edema. ENT: Nares patent. No nasal discharge, no septal abnormalities noted. Tympanic membranes are normal and external auditory canals are clear. Oropharynx with no redness, swelling, or masses, exudates, or evidence of obstruction, uvula midline. Mucous membranes moist. Neck: Trachea midline, no thyromegaly or masses palpated, and no cervical lymphadenopathy. Supple, full range of motion without nuchal rigidity, or vertebral point tenderness. No Meningismus. Chest/axilla: Normal chest wall appearance and motion. Nontender with no deformity. No lesions are appreciated. Cardiovascular: Regular rate and rhythm with a normal S1 and S2. No gallops, murmurs, or rubs. Normal PMI, no JVD. No pulse deficits. Respiratory: Lungs have equal breath sounds bilaterally, clear to auscultation and percussion. No rales, rhonchi or wheezes noted. No increased work of breathing, no retractions or nasal flaring. Abdomen/GI: Soft, non-tender, with normal bowel sounds. No distension or tympany. No guarding or rebound. No evidence of tenderness throughout. Skin: Warm, dry with normal turgor. Normal color with no rashes, no lesions, and no evidence of cellulitis. MS/ Extremity: Pulses equal, no cyanosis. Neurovascular intact. Full, normal range of motion. Neuro: Awake and alert, GCS 15, oriented to person, place, time, and situation. Cranial nerves II-XII grossly intact. Motor strength 5/5 in all extremities. Sensory grossly intact. Cerebellar exam normal. Normal gait. 05:53 Back: No spinal tenderness. No costovertebral tenderness. Full range of motion. ma2 Vital Signs: 04:47 BP 194 / 115; Pulse 88; Resp 16; Temp 98.3; Pulse Ox 98% ; Weight 97.52 kg; Height 5 rv ft. 9 in. (175.26 cm); Pain 0/10; 05:43 BP 157 / 104; Pulse 81; Resp 19; Pulse Ox 98% ; rv 06:26 BP 142 / 102; Pulse 82; Resp 16; Pulse Ox 98% on R/A; rv 04:47 Body Mass Index 31.75 (97.52 kg, 175.26 cm) rv MDM: 05:12 Patient medically screened. ma2 05:18 Differential Diagnosis elevated bp, not compliant on rx, pneumonia vs electrolyte ma2 disturbance . Data reviewed: vital signs, nurses notes. Counseling: I had a detailed discussion with the patient and/or guardian regarding: the historical points, exam findings, and any diagnostic results supporting the discharge/admit diagnosis, the presence of at least one elevated blood pressure reading (>120/80) during this emergency department visit, the need for outpatient follow up. Response to treatment: the patient's symptoms have markedly improved after treatment. 06:19 ED course: all workup wnl, bp is 140/100, all symptoms resolved he will see dr. darnell uriarte neurologist in 2 days . 10/05 05:13 Order name: Cardiac monitoring; Complete Time: 05:24 pr2 10/05 05:13 Order name: EKG - Nurse/Tech; Complete Time: 05: pr2 10/05 05:13 Order name: IV Saline Lock; Complete Time: : pr2 10/05 05:13 Order name: Labs collected and sent; Complete Time: : pr2 10/05 05:13 Order name: O2 Per Protocol; Complete Time: : pr2 10/05 05:13 Order name: O2 Sat Monitoring; Complete Time: pr2 Administered Medications: 06: Not Given (d c): Labetalol 100 mg PO once pr2 Disposition: 10/06/19 06:20 Discharged to Home. Impression: Essential (primary) hypertension. - Condition is Stable. - Discharge Instructions: Hypertension. - Medication Reconciliation Form, Thank You Letter, Antibiotic Education, Prescription Opioid Use form. - Follow up: Private Physician; When: Tomorrow; Reason: Continuance of care. Signatures: Mir Marroquin MD MD ma2 Audie Damon RN RN rv Corrections: (The following items were deleted from the chart) 06:20 10/06/2019 06:20 Discharged to Home. Impression: Essential (primary) rv hypertension. Condition is Stable. Discharge Instructions: Hypertension. Forms are Medication Reconciliation Form, Thank You Letter, Antibiotic Education, Prescription Opioid Use. Follow up: Private Physician; When: Tomorrow; Reason: Continuance of care. darnell
== END 2019-10-06 06:27 | disposition home or self-care (01) ==
LOC: ER 04:36
DX: I10 Essential (primary) hypertension (principal); F17.210 Nicotine dependence, cigarettes, uncomplicated; Z95.818 Presence of other cardiac implants and grafts
CPT/HCPCS: 36415; 70450; 71045; 80048; 80076; 83735; 83880; 84484; 85025; 85610; 93005; 99284

== ENCOUNTER 2019-10-20 15:18 | Inpatient (IN) | payer SELFPAY ==
--- NOTE | 2019-10-20 16:28 | RAD REPORT ---
EXAM DESCRIPTION: RAD - Chest Single View - 10/20/2019 4:22 pm CLINICAL HISTORY: CHEST PAIN Chest pain. COMPARISON: Chest Single View dated 10/06/2019; Chest Single View dated 09/26/2019; Chest Single View dated 09/28/2018 FINDINGS: Portable technique limits examination quality. The lungs are grossly clear. The heart is normal in size. No displaced fractures. IMPRESSION: No acute intrathoracic process suspected.
[2019-10-20 16:30] LABS: Basophils % 1.4 % (0-1.3); Hematocrit 44.6 % (39.6-49.0); Lymphocytes % 21.2 % (15.3-44.8); MPV 9.7 fL (7.6-11.3); RBC Red Blood Cell Count 4.96 M/uL (4.33-5.43)
[2019-10-20] MEDS ORDERED: ASPIRIN 81 MG CHEWABLE TABLET ONE (16:30)
[2019-10-20 16:35] LABS: Protime INR 0.91
[2019-10-20 16:51] LABS: ALT/SGPT 21 U/L (12-78); AST/SGOT 12 U/L (15-37); Albumin 3.4 g/dL (3.4-5.0); Alkaline Phosphatase 139 U/L (45-117); BUN Blood Urea Nitrogen 14 mg/dL (7-18); Bicarbonate 31 mmol/L (21-32); Bilirubin Direct < 0.1 mg/dL (0-0.2); Bilirubin Total 0.3 mg/dL (0.2-1.0); Glucose Level 111 mg/dL (74-106); Magnesium 2.1 mg/dL (1.8-2.4); NT PRO-BNP 112 pg/mL (<125); Potassium 3.9 mmol/L (3.5-5.1); Protein, Total 7.2 g/dL (6.4-8.2); Sodium Level 141 mmol/L (136-145); Troponin (Emerg Dept Use Only) < 0.02 ng/mL (0.0-0.045)
--- NOTE | 2019-10-20 17:27 | EDPHYS ---
Physician Documentation [facility] Name: Juan José Mcginnis Jr Age: 59 yrs Sex: Male : 1960 Arrival Date: 10/20/2019 Time: 15:21 Bed 6 Private MD: ED Physician Rohan Chen HPI: 10/19 15:56 This 59 yrs old Male presents to ER via Ambulatory with complaints of Chest jmm Pain. 15:56 The patient or guardian reports chest pain that is located primarily in the substernal m area. Onset: gradually, 1.5 hour(s) ago. The pain does not radiate. Associated signs and symptoms: Pertinent negatives: abdominal pain, shortness of breath. The chest pain is described as a pressure. Duration: The patient or guardian reports a single episode, that is still ongoing, but improving. Modifying factors: The symptoms are alleviated by nothing. the symptoms are aggravated by nothing. This is a 59 year old male with a history of CAD, HTN ,HLP that presents to the ED with complaints of chest pain beginning at approx 215 today. Pain does not radiates. patient denies shortness of breath. . Historical: - Allergies: 15:33 No Known Allergies; tw2 - Home Meds: 15:33 lisinopril 40 mg oral tab 1 tab once daily [Active]; Nitrostat 0.4 mg sublingual subl tw2 [Active]; Lipitor 10 mg Oral tab 1 tab once daily [Active]; Plavix 75 mg Oral tab 1 tab once daily [Active]; aspirin 81 mg Oral chew 1 tab once daily [Active]; Slow-Mag 71.5 mg Oral TbEC [Active]; metoprolol tartrate 25 mg Oral tab 0.5 tab as needed [Active]; - PMHx: 15:33 High Cholesterol; Hypertension; CAD; tw2 15:33 Carotid artery occlusion Left Anterior; tw2 - PSHx: 15:33 Heart stents; tw2 - Immunization history:: Adult Immunizations. - Social history:: Smoking status: Patient reports the use of cigarette tobacco products, smokes one pack cigarettes per day. ROS: 15:56 Constitutional: Negative for fever, chills, and weight loss. jmm 15:56 Abdomen/GI: Negative for abdominal pain, nausea, vomiting, diarrhea, and constipation, Back: Negative for injury and pain, Neuro: Negative for headache, weakness, numbness, tingling, and seizure. 15:56 Cardiovascular: Positive for chest pain. 15:56 Respiratory: Negative for shortness of breath. 15:56 All other systems are negative. Exam: 15:56 Constitutional: This is a well developed, well nourished patient who is awake, alert, jmm and in no acute distress. Head/Face: atraumatic. Eyes: EOMI, no conjunctival erythema appreciated ENT: Moist Mucus Membranes Neck: Trachea midline, Supple Chest/axilla: Normal chest wall appearance and motion. Cardiovascular: Regular rate and rhythm. No edema appreciated Respiratory: Normal respirations, no respiratory distress appreciated Abdomen/GI: Non distended, soft Back: Normal ROM Skin: General appearance color normal MS/ Extremity: Moves all extremities, no obvious deformities appreciated, no edema noted to the lower extremities Neuro: Awake and alert, normal gait Psych: Behavior is normal, Mood is normal, Patient is cooperative and pleasant Vital Signs: 15:28 BP 122 / 94; Pulse 102; Resp 18; Temp 98.0(TE); Pulse Ox 97% on R/A; Weight 96.62 kg tw2 (R); Height 5 ft. 9 in. (175.26 cm); Pain 5/10; 16:39 BP 126 / 95; Pulse 94; Resp 23; Pulse Ox 98% on R/A; ph 17:23 BP 119 / 82; Pulse 84; Resp 12; Pulse Ox 96% on R/A; ph 18:30 BP 126 / 89; Pulse 84; Resp 20; Pulse Ox 97% on R/A; ph 19:00 BP 126 / 89; Pulse 83; Resp 19; Pulse Ox 99% on R/A; jb4 15:28 Body Mass Index 31.45 (96.62 kg, 175.26 cm) tw2 MDM: 15:39 Patient medically screened. joaquin 17:23 The patient was given aspirin in the Emergency Department. Data reviewed: vital signs, [facility] nurses notes, lab test result(s), EKG, radiologic studies, plain films. Counseling: I had a detailed discussion with the patient and/or guardian regarding: the historical points, exam findings, and any diagnostic results supporting the discharge/admit diagnosis. 17:24 ED course: I discussed the patient with Dr. Crow whom recommends to admit patient [facility] and will cath tomorrow morning. I discussed the patient with Dr. Schaefer whom accepted admission. . 10/19 15:54 Order name: Basic Metabolic Panel; Complete Time: 16:54 [facility] 10/19 15:54 Order name: CBC with Diff; Complete Time: 16:36 10/19 15:54 Order name: LFT's; Complete Time: 16:54 [facility] 10/19 15:54 Order name: Magnesium; Complete Time: 16:54 [facility] 10/19 15:54 Order name: NT PRO-BNP; Complete Time: 16:54 [facility] 10/19 15:54 Order name: PT-INR; Complete Time: 16:44 [facility] 10/19 15:54 Order name: Troponin (emerg Dept Use Only); Complete Time: 16:54 [facility] 10/19 15:54 Order name: XRAY Chest (1 view); Complete Time: 18:30 [facility] 10/19 15:54 Order name: EKG; Complete Time: 15:55 [facility] 10/19 15:54 Order name: Cardiac monitoring; Complete Time: 16:18 [facility] 10/19 15:54 Order name: EKG - Nurse/Tech; Complete Time: 16:18 [facility] 10/19 15:54 Order name: IV Saline Lock; Complete Time: 16:18 [facility] 10/19 15:54 Order name: Labs collected and sent; Complete Time: 16:18 [facility] 10/19 15:54 Order name: O2 Per Protocol; Complete Time: 16:18 [facility] 10/19 15:54 Order name: O2 Sat Monitoring; Complete Time: 16:18 jm Administered Medications: 16:36 Drug: Aspirin Chewable Tablet 324 mg Route: PO; ph 17:24 Follow up: Response: No adverse reaction ph Disposition: 10/20 18:42 Co-signature as Attending Physician, Rohan Chen MD I agree with the assessment and joaquin plan of care. Disposition: 10/20/19 17:26 Hospitalization ordered by Idalmis Schaefer for Observation. Preliminary diagnosis is Chest pain, unspecified. - Bed requested for Telemetry/MedSurg (observation). - Status is Observation. jb4 - Condition is Stable. - Problem is new. - Symptoms are unchanged. Signatures: Dispatcher [employer] EDMS Rolando, Majo, RN Rohan Pena MD MD cha Mickail, Joel, PA PA [facility] Deidre Morillo, Gail Shaw RN, ph, ELAN RN tw2 Jovon Tom, ELAN RN jb4 Corrections: (The following items were deleted from the chart) 10/19 18:15 17:26 Hospitalization Ordered by Idalmis Schaefer MD for Observation. Preliminary diagnosis kl is Chest pain, unspecified. Bed requested for Telemetry/MedSurg (observation). Status is Observation. Condition is Stable. Problem is new. Symptoms are unchanged. [facility] 19:50 18:15 10/20/2019 17:26 Hospitalization Ordered by Idalmis Schaefer MD for Observation. jb4 Preliminary diagnosis is Chest pain, unspecified. Bed requested for Telemetry/MedSurg (observation). Status is Observation. Condition is Stable. Problem is new. Symptoms are unchanged. kl
--- NOTE | 2019-10-20 17:27 | ER ---
Nurse's Notes [facility] Name: Juan José Mcginnis Jr Age: 59 yrs Sex: Male : 1960 Arrival Date: 10/20/2019 Time: 15:21 Bed 6 Private MD: Diagnosis: Chest pain, unspecified Presentation: 10/19 15:28 Chief complaint: Patient states: i am having chest pains, it started 45 minutes ago, i tw2 had just walked up the stairs, it was a steady pressure that was pretty intense, it has subsided somewhat but it is still there,i do feel short of breath often but when the pain started i was real short of breath. Coronavirus screen: Patient denies a cough. Patient reports shortness of breath or difficulty breathing. Patient denies measured and/or subjective temperature greater than 100.4F prior to today's visit. Patient denies travel on a cruise ship or to a country the [facility] currently lists as an affected area. Patient denies contact with known and/or suspected case of COVID-19. Ebola Screen: Patient denies travel to an Ebola-affected area in the 21 days before illness onset. Initial Sepsis Screen: Does the patient meet any 2 criteria? HR > 90 bpm. No. Patient's initial sepsis screen is negative. Does the patient have a suspected source of infection? No. Patient's initial sepsis screen is negative. Risk Assessment: Do you want to hurt yourself or someone else? Patient reports no desire to harm self or others. Onset of symptoms was October 20, 2019. 15:28 Method Of Arrival: Ambulatory tw2 15:28 Acuity: CLAUDIA 3 tw2 15:33 Note "Dr. Crow is coal sampler, i have seen dr. uriarte neurologist but dont have a tw2 pcp now". Triage Assessment: 15:31 General: Appears in no apparent distress. Behavior is calm, cooperative, appropriate tw2 for age. Pain: Complains of pain in chest. Cardiovascular: Reports chest pain, shortness of breath. Historical: - Allergies: 15:33 No Known Allergies; tw2 - Home Meds: 15:33 lisinopril 40 mg oral tab 1 tab once daily [Active]; Nitrostat 0.4 mg sublingual subl tw2 [Active]; Lipitor 10 mg Oral tab 1 tab once daily [Active]; Plavix 75 mg Oral tab 1 tab once daily [Active]; aspirin 81 mg Oral chew 1 tab once daily [Active]; Slow-Mag 71.5 mg Oral TbEC [Active]; metoprolol tartrate 25 mg Oral tab 0.5 tab as needed [Active]; - PMHx: 15:33 High Cholesterol; Hypertension; CAD; tw2 15:33 Carotid artery occlusion Left Anterior; tw2 - PSHx: 15:33 Heart stents; tw2 - Immunization history:: Adult Immunizations. - Social history:: Smoking status: Patient reports the use of cigarette tobacco products, smokes one pack cigarettes per day. Screenin:39 Abuse screen: Denies threats or abuse. Denies injuries from another. Nutritional ph screening: No deficits noted. Tuberculosis screening: No symptoms or risk factors identified. Fall Risk None identified. Assessment: 16:37 General: Appears in no apparent distress. comfortable, well groomed, Behavior is calm, ph cooperative, appropriate for age, Denies fever, feeling ill. Pain: Complains of pain in anterior aspect of left upper chest Pain does not radiate. Quality of pain is described as pressure, sharp, Pain began suddenly. Neuro: Level of Consciousness is awake, alert, obeys commands, Oriented to person, place, time, situation, Denies weakness blurred vision dizziness, headache. Cardiovascular: Reports chest pain, fatigue, lightheadedness, shortness of breath, Denies nausea, palpitations, syncope, vomiting, Capillary refill < 3 seconds in bilateral fingers Patient's skin is warm and dry. Rhythm is sinus rhythm. Respiratory: Reports shortness of breath on exertion Airway is patent Respiratory effort is even, unlabored, Respiratory pattern is regular, symmetrical, Denies cough. GI: No signs and/or symptoms were reported involving the gastrointestinal system. Derm: Skin is intact, is healthy with good turgor, Skin is pink, warm \\T\\ dry. Musculoskeletal: Circulation, motion, and sensation intact. Range of motion: intact in all extremities. 17:23 Reassessment: Patient appears in no apparent distress at this time. Patient and/or ph family updated on plan of care and expected duration. Pain level reassessed. Patient is alert, oriented x 3, equal unlabored respirations, skin warm/dry/pink. 17:50 Reassessment: Dr Schaefer at the bedside. sv 18:30 Reassessment: Patient appears in no apparent distress at this time. Patient and/or ph family updated on plan of care and expected duration. Pain level reassessed. Patient is alert, oriented x 3, equal unlabored respirations, skin warm/dry/pink. 19:10 Reassessment: Patient appears in no apparent distress at this time. Patient and/or jb4 family updated on plan of care and expected duration. Pain level reassessed. Patient is alert, oriented x 3, equal unlabored respirations, skin warm/dry/pink. 19:50 Reassessment: Patient appears in no apparent distress at this time. Patient and/or jb4 family updated on plan of care and expected duration. Pain level reassessed. Patient is alert, oriented x 3, equal unlabored respirations, skin warm/dry/pink. PT transferred to room 215, report given to ELAN Valencia. Vital Signs: 15:28 BP 122 / 94; Pulse 102; Resp 18; Temp 98.0(TE); Pulse Ox 97% on R/A; Weight 96.62 kg tw2 (R); Height 5 ft. 9 in. (175.26 cm); Pain 5/10; 16:39 BP 126 / 95; Pulse 94; Resp 23; Pulse Ox 98% on R/A; ph 17:23 BP 119 / 82; Pulse 84; Resp 12; Pulse Ox 96% on R/A; ph 18:30 BP 126 / 89; Pulse 84; Resp 20; Pulse Ox 97% on R/A; ph 19:00 BP 126 / 89; Pulse 83; Resp 19; Pulse Ox 99% on R/A; jb4 15:28 Body Mass Index 31.45 (96.62 kg, 175.26 cm) tw2 ED Course: 15:21 Patient arrived in ED. mr 15:31 Triage completed. tw2 15:31 Arm band placed on. EKG completed in triage. Results shown to MD. tw2 15:36 Jose De Jesus Stone PA is PHCP. [facility] 15:36 Rohan Chen MD is Attending Physician. [facility] 15:36 Deidre Morillo, ELAN is Primary Nurse. ph 16:10 Initial lab(s) drawn, by nh, sent to lab. Inserted saline lock: 20 gauge in right ph antecubital area, using aseptic technique. Blood collected. Patient maintains SpO2 saturation greater than 95% on room air. 16:22 XRAY Chest (1 view) In Process Unspecified. EDMS 16:39 Patient has correct armband on for positive identification. Bed in low position. Call ph light in reach. Side rails up X 1. mat worker on. Pulse ox on. NIBP on. Door closed. Noise minimized. Warm blanket given. 16:39 No provider procedures requiring assistance completed. ph 17:26 Idalmis Schaefer MD is Hospitalizing Provider. [facility] 19:10 Patient admitted, IV remains in place. ph 19:19 Primary Nurse role handed off by eDidre Morillo RN jb4 19:19 Jovon Tom, RN is Primary Nurse. jb4 Administered Medications: 16:36 Drug: Aspirin Chewable Tablet 324 mg Route: PO; ph 17:24 Follow up: Response: No adverse reaction ph Outcome: 17:26 Decision to Hospitalize by Provider. [facility] 19:49 Admitted to Med/surg accompanied by tech, via wheelchair, room 215, with chart, Report jb4 called to ELAN Valencia 19:49 Condition: stable 19:49 Discharge instructions given to patient, family, Instructed on the need for admit, Demonstrated understanding of instructions. 19:50 Patient left the ED. manuel Signatures: Dispatcher [employer] EDMS Laura Mathur, RN Jose De Jesus Munroe PA PA [facility] Renetta Lehman Deidre Morillo RN RN ph Wise, Tara, RN RN tw2 Jovon Tom, RN ELAN jackson
--- NOTE | 2019-10-20 18:07 | P.HP ---
Certification for Inpatient Patient admitted to: Observation With expected LOS: <2 Midnights Practitioner: I am a practitioner with admitting privileges, knowledge of patient current condition, hospital course, and medical plan of care. Services: Services provided to patient in accordance with Admission requirements found in Title 42 Section 412.3 of the Code of Federal Regulations Patient History Date of Service: 10/20/19 Primary Care Provider: none Reason for admission: Chest pain History of Present Illness: Patient is a 59-year-old male with past medical history of hypertension heart disease status post stent and carotid artery disease with 100% occlusion of the left carotid who recently had a stress test in September which was negative comes in w ith chest pain. Patient states his chest pain is left-sided nonradiating worse with activity started when he walked up a flight of stairs. Patient's pain was constant moderate progressively worsening. Alleviating factors include rest. Aggravating factors include exertion. Patient does report associated shortness of breath but no nausea vomiting fever chills. Patient came into the ER for further evaluation. In the ER his initial workup including EKG and troponin level were negative. Dr. Crow contacted by the ED were recommended heart catheterization. Patient was referred for admission. When seen in the ER he was awake alert oriented x3 in some mild distress Allergies No Known Allergies Allergy (Verified 09/27/19 02:22) Home medications list reviewed: Yes Home Medications: Aspirin 81 mg PO DAILY #90 tab.chew 09/27/19 Atorvastatin Calcium [Lipitor] 40 mg PO DAILY #30 tablet 09/27/19 Clopidogrel Bisulfate [Plavix] 75 mg PO DAILY 30 Days #30 tablet 09/27/19 Magnesium Chloride [Slow-Mag*] 1 tab PO BID #60 tab 09/27/19 Metoprolol Tartrate 25 mg PO BID #60 tablet 09/27/19 Nicotine [Nicoderm] 1 patch TD DAILY #30 patch.td24 09/27/19 Nitroglycerin 0.4 mg SL SEECOM #1 bottle 09/27/19 lisinopriL [Lisinopril] 40 mg PO DAILY 30 Days #30 tablet 09/27/19 - Past Medical/Surgical History Diabetic: No -: HLD -: HTN -: CAD -: Carotid artery disease -: Stent placement 6 yr ago -: tonsilectomy -: Elvis Knee Sx -: Rt wrist Sx - Family History Father -: Heart disease, Hypertension Mother -: Heart disease - Social History Smoking Status: Heavy Tobacco smoker (>10 cigarettes/day) Counseled patient to stop smoking for: less than 10 minutes Alcohol use: No CD- Drugs: No Caffeine use: Yes Place of Residence: Home Review of Systems 10-point ROS is otherwise unremarkable Cardiovascular: As per HPI Physical Examination - Vital Signs Temperature: 98 F Blood Pressure: 122/94 Pulse: 102 Respirations: 18 Pulse Ox (%): 97 - Physical Exam General: Alert, Oriented x3, Mild distress, Obese HEENT: Atraumatic, Normocephalic, PERRLA, EOMI, Sclerae nonicteric Neck: Supple, JVD not distended Respiratory: Clear to auscultation bilaterally, Normal air movement, Other (No wheezing or stridor) Cardiovascular: No edema, Normal pulses, Regular rate/rhythm, Normal S1 S2 Gastrointestinal: Normal bowel sounds, Soft and benign, Non-distended, No tenderness Musculoskeletal: No clubbing, No erythema, No tenderness Integumentary: No rashes, No erythema Neurological: Normal speech, Normal strength at 5/5 x4 extr, Normal tone, Cranial nerves 3-12 intact, Normal affect - Studies Laboratory Data (last 24 hrs) 10/20/19 16:15: PT 10.8, INR 0.91 10/20/19 16:15: WBC 9.3, Hgb 15.0, Hct 44.6, Plt Count 137 L 10/20/19 16:15: Sodium 141, Potassium 3.9, BUN 14, Creatinine 0.95, Glucose 111 H, Magnesium 2.1, Total Bilirubin 0.3, AST 12 L, ALT 21, Alkaline Phosphatase 139 H Imagings Data: Chest x-ray shows no acute cardiopulmonary process Assessment and Plan - Problems (Diagnosis) (1) Unstable angina Current Visit: Yes Status: Acute (2) History of coronary artery disease Current Visit: No Status: Acute (3) History of cerebrovascular accident from left carotid artery occlusion involving left middle cerebral artery territory Current Visit: No Status: Acute (4) History of coronary artery stent placement Current Visit: No Status: Acute (5) Hypertension Current Visit: No Status: Chronic Qualifiers: Hypertension type: essential hypertension Qualified Code(s): I10 - Essential (primary) hypertension (6) Obesity Current Visit: Yes Status: Acute Qualifiers: Obesity type: due to excess calories Obesity classification: adult class 1 (BMI 30 - 34.9) Serious obesity comorbidity presence: without serious comorbidity Body mass index: BMI 31.0-31.9 Qualified Code(s): E66.09 - Other obesity due to excess calories; Z68.31 - Body mass index (BMI) 31.0-31.9, adult (7) Nicotine dependence Current Visit: Yes Status: Acute Qualifiers: Nicotine product type: cigarettes Substance use status: uncomplicated Qualified Code(s): F17.210 - Nicotine dependence, cigarettes, uncomplicated - Plan Start on chest pain guidelines PAULINE-inhibitor beta-deepa statin aspirin and Plavix Cardiology consultation Anticipate heart catheterization in a.m. Nicotine patch. Counseled regarding smoking cessation SCDs Resume home medications once reconciled Discharge Plan: Home Plan to discharge in: 24 Hours - Advance Directives Does patient have a Living Will: No Does patient have a Durable POA for Healthcare: No - Code Status/Comfort Care Code Status Assessed: Yes
[2019-10-20] MEDS ORDERED: NITROGLYCERIN 0.4 MG/TAB SL PRN (19:56)
[2019-10-20] MEDS ORDERED: ACETAMINOPHEN 500 MG TAB PO PRN (19:56)
[2019-10-20] MEDS ORDERED: MORPHINE 2 MG/ML SYR IV PRN (20:08)
[2019-10-20 20:11] VITALS: BMI 31.6
[2019-10-20] MEDS: NICOTINE 21 MG/PAT TD SCH (21:29)
[2019-10-20] MEDS: ATORVASTATIN 40 MG TAB PO SCH (21:30)
[2019-10-20] MEDS: CALCIUM CARBONATE CHEW 500MG TAB PO PRN (22:20)
--- NOTE | 2019-10-21 01:21 | CON ---
Date of Consultation: 10/20/2019 Reason For Consultation: Unstable angina. History Of Present Illness: Mr. Mcginnis is a 59-year-old white male. He has a history of hypertensio n, high cholesterol, CAD, CVD. He has a completely occluded ICA on the left. He has had stents befo re. He has been in the hospital recently for chest pain that was suggestive of angina. However, an echocardiogram and a stress test were negative. The patient came back today to the emergency room wi th persistent chest pain substernal with exertion, radiating to the left arm with nausea and diaphore sis and shortness of breath. Denied PND, orthopnea, pedal edema, palpitations, or syncope. Allergies: NONE. Review of Systems: Negative. Social History: Positive for tobacco. Family History: Positive for heart disease. Past Medical History: Includes hypertension, high cholesterol, CAD, CVD, status post stents. Medications: At home include lisinopril, Lipitor, Plavix, aspirin, magnesium, and metoprolol. Physical Examination: Vital signs: Stable, afebrile. HEENT: Negative. Neck: Supple with no bruit. Chest: Clear to auscultation and percussion. Cardiac: Revealed a regular rhythm and rate. No murmurs, gallops, or rubs. Abdomen: Benign. Extremities: Revealed no clubbing, cyanosis, or edema. Diagnostic Data: So far have been all within normal limits. His creatinine is 0.95, hemoglobin is 1 5.0. His PT and INR were normal. Troponin is negative. Impression And Plan: This is a patient with multiple cardiac risk factors. Has had a stent in his c oronaries in the past. Has hypertension, dyslipidemia, cardiovascular disease. Continues to have manjarrez ggestive chest pain despite a normal stress test. I suggest the left heart catheterization to define his coronary anatomy with possible intervention. Patient understands the risk and the benefits of t he procedure and he agreed to proceed. His blood pressure and dyslipidemia are well controlled. MARI/VINICIUS Voice ID: [id number] Report ID: [id number]
[2019-10-21 04:17] LABS: Basophils % 0.7 % (0-1.3); Hematocrit 43.4 % (39.6-49.0); Lymphocytes % 28.2 % (15.3-44.8); MPV 9.6 fL (7.6-11.3); RBC Red Blood Cell Count 4.74 M/uL (4.33-5.43)
[2019-10-21 04:29] LABS: Potassium 3.9 mmol/L (3.5-5.1)
[2019-10-21] MEDS ORDERED: NA CHLORIDE 0.9% 1,000 ML ONE (04:59)
[2019-10-21] MEDS: ASPIRIN EC 81 MG TAB PO SCH (05:21)
[2019-10-21] MEDS: lisinopriL 20 MG TAB PO SCH (05:22)
[2019-10-21] MEDS ORDERED: METOPROLOL TAR 25 MG TAB PO PRN (08:00)
[2019-10-21] MEDS ORDERED: HEPA 1000U/500MLS 2,000 UNIT/1,000 ML BAG IV ONE (08:27)
[2019-10-21] MEDS: NICOTINE 21 MG/PAT TD SCH (08:53)
[2019-10-21] MEDS ORDERED: MIDAZOLAM HCL 2 MG/2 ML INJ ONE ×2 (11:51→12:13)
[2019-10-21] MEDS ORDERED: ATROPINE SULF 1 MG/10 ML SYR IV ONE (11:51)
[2019-10-21] MEDS ORDERED: HEPARIN 5000 UNIT/ML 1 ML VIAL ONE (11:51)
[2019-10-21] MEDS ORDERED: FENTANYL CITR 100 MCG/2 ML ONE (11:51)
[2019-10-21] MEDS ORDERED: HEPA 1000U/500MLS 1,000 UNIT/500 ML BAG IV ONE (12:45)
[2019-10-21] MEDS ORDERED: NITROGLYCERIN/D5W 25 MG/250 ML BTL IV ONE (12:50)
[2019-10-21] MEDS ORDERED: NITROGLYCERIN 100 MCG/ML SYR (for cath lab use only) IV ONE (12:50)
[2019-10-21] MEDS ORDERED: CLOPIDOGREL 75 MG TABLET ONE (12:54)
[2019-10-21] MEDS ORDERED: METOPROLOL TARTRATE 5 MG/5 ML INJ IV ONE (13:04)
--- NOTE | 2019-10-21 13:23 | P.PN ---
Subjective Date of Service: 10/21/19 Primary Care Provider: none Chief Complaint: Chest pain Subjective: Improving Patient seen and examined chart reviewed and case discussed with RN and Dr. Crow Patient went for heart catheterization today received 2 stents. Review of Systems 10-point ROS is otherwise unremarkable Cardiovascular: As per HPI Physical Examination - Vital Signs Temperature: 97.5 F Blood Pressure: 135/85 Pulse: 86 Respirations: 16 Pulse Ox (%): 95 - Physical Exam General: Alert, In no apparent distress, Oriented x3, Obese HEENT: Atraumatic, PERRLA, EOMI Neck: Supple, JVD not distended Respiratory: Clear to auscultation bilaterally, Normal air movement Cardiovascular: No edema, Normal pulses, Regular rate/rhythm, Normal S1 S2 Gastrointestinal: Normal bowel sounds, Soft and benign, Non-distended, No tenderness Musculoskeletal: No tenderness Integumentary: No rashes, No erythema Neurological: Normal speech, Normal strength at 5/5 x4 extr, Normal tone, Cranial nerves 3-12 intact, Normal affect - Studies Laboratory Data (last 24 hrs) 10/21/19 07:54: Troponin I < 0.02 10/21/19 03:42: Sodium 142, Potassium 3.9, BUN 17, Creatinine 0.91, Glucose 109 H, Triglycerides 240 H, Cholesterol 155, HDL Cholesterol 43, Cholesterol/HDL Ratio 3.60 10/21/19 03:42: WBC 10.7 D, Hgb 14.7, Hct 43.4, Plt Count 125 L 10/20/19 23:47: Troponin I < 0.02 10/20/19 16:15: PT 10.8, INR 0.91 10/20/19 16:15: WBC 9.3, Hgb 15.0, Hct 44.6, Plt Count 137 L 10/20/19 16:15: Sodium 141, Potassium 3.9, BUN 14, Creatinine 0.95, Glucose 111 H, Magnesium 2.1, Total Bilirubin 0.3, AST 12 L, ALT 21, Alkaline Phosphatase 139 H Microbiology Data (last 24 hrs): 10/20/19 21:32 Nasopharnyx Coronavirus COVID-19 PCR - Final Medications List Reviewed: Yes Assessment And Plan - Current Problems (Diagnosis) (1) ACS (acute coronary syndrome) Current Visit: Yes Status: Acute (2) History of coronary artery disease Current Visit: No Status: Acute (3) History of cerebrovascular accident from left carotid artery occlusion involving left middle cerebral artery territory Current Visit: No Status: Acute (4) History of coronary artery stent placement Current Visit: No Status: Acute (5) Hypertension Current Visit: No Status: Chronic Qualifiers: Hypertension type: essential hypertension Qualified Code(s): I10 - Essential (primary) hypertension (6) Obesity Current Visit: Yes Status: Acute Qualifiers: Obesity type: due to excess calories Obesity classification: adult class 1 (BMI 30 - 34.9) Serious obesity comorbidity presence: without serious comorbidity Body mass index: BMI 31.0-31.9 Qualified Code(s): E66.09 - Other obesity due to excess calories; Z68.31 - Body mass index (BMI) 31.0-31.9, adult (7) Nicotine dependence Current Visit: Yes Status: Acute Qualifiers: Nicotine product type: cigarettes Substance use status: uncomplicated Qualified Code(s): F17.210 - Nicotine dependence, cigarettes, uncomplicated - Plan Continue chest pain guidelines. PAULINE-inhibitor beta-deepa statin aspirin and Plavix Patient had heart catheterization today and received 2 stents. Will need continued monitoring Nicotine patch. Counseled regarding smoking cessation Start Lovenox Likely Dc in a.m. once cleared by cardiology Discharge Plan: Home Plan to discharge in: 24 Hours
[2019-10-21] MEDS ORDERED: HYDRALAZINE HCL 20 MG/ML VIAL ONE (13:32)
[2019-10-21] MEDS ORDERED: ONDANSETRON 4 MG/2 ML VIAL ONE (13:32)
[2019-10-21] MEDS: ATORVASTATIN 40 MG TAB PO SCH (20:00)
[2019-10-21] MEDS: CALCIUM CARBONATE CHEW 500MG TAB PO PRN (21:59)
--- NOTE | 2019-10-22 00:27 | OP ---
Date of Procedure: 10/21/2019 Surgeon: ROBIN FARRELL Procedure Performed: 1.Selective coronary angiogram. 2.Percutaneous coronary intervention of the distal left anterior descending, 90% stenosis using 2.25 x 16 mm Synergy drug-eluting stent. Access: Right femoral artery 6-Trinidadian closed with 6-Trinidadian Angio-Seal. Indication: Unstable angina. Description Of Procedure: We accessed the right femoral artery under fluoroscopy and ultrasound guid ance using a micropuncture kit and then a pinnacle sheath 6-Trinidadian was placed and we took a 6-Trinidadian JL-4 catheter into the aortic root over the J-wire and engaged the left main coronary artery and then exchanged the JR4, and engaged the right coronary artery. I took standard views and then decided to intervene on the severe distal LAD stenosis. In addition, we took an EBU 3.5 over the J-wire into t he aortic root, engaged the left main and then we took a short run-through wire and passed this throu gh the LAD across the stenosis and then took a 2.0 x 8 mm balloon and did angioplasty. Initially, I was planning to do angioplasty alone; however, a small dissection happened at the area of the plaque and we decided to stent. We took a 2.25 x 16 mm Synergy drug-eluting stent across the stenosis and d eployed the stent successfully without complications. KYRA-3 flow before and after the length of the lesion is 12 mm and residual stenosis post PCI was 0%. Then we took the wires and the catheter out and then closed the groin using 6-Trinidadian Angio-Seal with good hemostasis. Findings: 1.Severe distal LAD disease, likely the culprit for the symptoms, status post PCI as above. 2.Ostial left circumflex stenosis with calcifications, this is possible to be significant. However, it is unclear without further testing either IFR or IVUS. If the patient continues to have symptoms , plan to take him to [facility] and do intravascular ultrasound or IFR. 3.Severe diffuse RCA disease. However, RCA is a very small vessel and I do not recommend interventi on on it. 4.Right internal carotid artery has 50% stenosis and could not engage the left carotid artery. It i s probably totally occluded. We will refer to the CT scan on that matter. Recommendations: 1.Patient was on Plavix, continue at 75 mg daily as well as aspirin 81 mg and high-dose statin. 2.Evaluation of the left circumflex and re-attempt to evaluate the carotid artery on the left side a s a good amount of contrast was used in today's procedure, so decided to stop trying to engage the le ft carotid artery and we will evaluate the CT scan results. If it is totally occluded, we will do no further attempts to engage it. /VINICIUS Voice ID: [id number] Report ID: [id number]
[2019-10-22 05:52] LABS: Basophils % 0.6 % (0-1.3); Hematocrit 43.8 % (39.6-49.0); MPV 9.4 fL (7.6-11.3); RBC Red Blood Cell Count 4.86 M/uL (4.33-5.43)
[2019-10-22 06:09] LABS: Potassium 3.7 mmol/L (3.5-5.1)
[2019-10-22 08:40] VITALS: BP 126/79; TEMP 96.7
[2019-10-22] MEDS: NICOTINE 21 MG/PAT TD SCH (08:52)
[2019-10-22] MEDS: lisinopriL 20 MG TAB PO SCH (08:52)
[2019-10-22] MEDS: ASPIRIN EC 81 MG TAB PO SCH (08:52)
[2019-10-22 11:35] VITALS: O2SAT 98
--- NOTE | 2019-10-23 04:14 | DS ---
Date of Discharge: 10/22/2019 Consultants: Dr. Livingston and Dr. Crow with Cardiology. Procedures: On 10/21/2019, cardiac catheterization with stent in LAD. Admitting Diagnoses: 1.Unstable angina. 2.Coronary artery disease, ottawa artery, ottawa heart with angina status post stent. 3.History of obesity, BMI 31. 4.Essential hypertension. 5.Nicotine dependence with cigarette smoking, uncomplicated. Discharge Diagnoses: 1.Acute coronary syndrome. 2.History of coronary artery disease, [place] artery and ottawa heart with angina status post stent. 3.History of cerebrovascular accident from left carotid artery occlusion involving the left middle c erebral artery territory. 4.History of coronary artery stent placement. 5.Essential hypertension, stable. 6.Obesity, BMI 31, counseled. 7.Nicotine dependence with cigarette smoking, counseled. Hospital Course: Patient is a 59-year-old male with past medical history of heart disease status pos t stent, hypertension, carotid artery disease with occlusion 100% on the left, comes in with chest pa in. Patient was admitted to the hospital, was found to have acute coronary syndrome. 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 Patient did well after the stent. H is lipid panel did show elevated triglycerides. He was counseled to stop smoking. Currently still h eavy smoker, he seemed receptive. He was given nicotine patches. The patient's pain improved after the procedure. He was then cleared for discharge and was sent home in a stable condition. Activity: As tolerated. Medications: As per medication reconciliation list. Patient will continue his home doses of aspirin , Plavix, statin, beta-deepa. He takes beta-deepa as needed only due to his low blood pressure. Followup: Follow up with primary care physician in 2-3 days. Follow up with [facility], Dr. Deb pérez in 2 weeks. Patient will need a further heart catheterization, angiogram for the procedures to be done as an outpatient. Return to ER for worsening condition. Physical Examination: General: Awake, alert, oriented x3. No acute distress, obese male. CV: S1, S2. Regular rate and rhythm. Respiratory: Moving air well bilaterally. Abdomen: Soft, nontender, nondistended. Positive bowel sounds. Extremities: No clubbing, cyanosis, or edema. Skin: Right groin, no hematoma. Catheter site looks stable, clean, dry, intact. Neurologic: Nonfocal. Total time spent discharging patient was 35 minutes. /VINICIUS Voice ID: [id number] Report ID: [id number]
== END 2019-10-22 12:06 | disposition home or self-care (01) | DRG 247 ==
LOC: ER 15:18 → ERHOLD 17:29 → 2ND 19:40 → OBSVTOIN 10-21 07:57
PROVIDERS: ADMIT Family Medicine; ATTEND Family Medicine
PROC: 027034Z Dilation of Coronary Artery, One Artery with Drug-eluting Intraluminal Device, Percutaneous Approach (ICD-10-PCS; principal; 2019-10-21)
PROC: 4A023N7 Measurement of Cardiac Sampling and Pressure, Left Heart, Percutaneous Approach (ICD-10-PCS; 2019-10-21)
PROC: B2111ZZ Fluoroscopy of Multiple Coronary Arteries using Low Osmolar Contrast (ICD-10-PCS; 2019-10-21)
DX: I24.9 Acute ischemic heart disease, unspecified (principal); I25.110 Atherosclerotic heart disease of native coronary artery with unstable angina pectoris; E78.5 Hyperlipidemia, unspecified; F17.210 Nicotine dependence, cigarettes, uncomplicated; I10 Essential (primary) hypertension; R06.02 Shortness of breath; E66.09 Other obesity due to excess calories; Z68.31 Body mass index [BMI] 31.0-31.9, adult; Z20.828 Contact with and (suspected) exposure to other viral communicable diseases; Z79.82 Long term (current) use of aspirin; Z79.899 Other long term (current) drug therapy; Z79.02 Long term (current) use of antithrombotics/antiplatelets; Z95.5 Presence of coronary angioplasty implant and graft
CPT/HCPCS: 36222; 36415; 71045; 80048; 80061; 80076; 83735; 83880; 84484; 85025; 85347; 85610; 92928; 93005; 93454; 99285; C1725; C1760; C1893; G0378; J0360; J1644; J2250; J2405; J3010; J7030; U0002

== ENCOUNTER 2021-05-03 12:31 | Emergency (ER) | payer OTHER ==
--- NOTE | 2021-05-03 14:14 | ER ---
Nurse's Notes [facility] Name: Juan José Mcginnis Jr Age: 61 yrs Sex: Male : 1960 Arrival Date: 05/03/2021 Time: 12:35 Bed Waiting Private MD: Jerome Monique Diagnosis: Presentation: 05/03 13:44 Chief complaint: Patient states: Dental pain and facial swelling that began last night. ss Coronavirus screen: Client denies travel out of the [place] in the last 14 days. Ebola Screen: Patient denies exposure to infectious person. Patient denies travel to an Ebola-affected area in the 21 days before illness onset. Initial Sepsis Screen: Does the patient meet any 2 criteria? No. Patient's initial sepsis screen is negative. Does the patient have a suspected source of infection? No. Patient's initial sepsis screen is negative. Risk Assessment: Do you want to hurt yourself or someone else? Patient reports no desire to harm self or others. Onset of symptoms was May 02, 2021. 13:44 Method Of Arrival: Ambulatory ss 13:44 Acuity: CLAUDIA 5 ss Historical: - Allergies: 13:45 No Known Allergies; ss - PMHx: 13:45 CAD; Carotid artery occlusion Left Anterior; High Cholesterol; Hypertension; ss - Immunization history:: Client reports receiving the 2nd dose of the Covid vaccine. - Social history:: Smoking status: Patient denies any tobacco usage or history of. Vital Signs: 13:44 BP 143 / 94; Pulse 90; Resp 16; Temp 97.5(TE); Pulse Ox 100% on R/A; Weight 102.06 kg; ss Height 5 ft. 9 in. (175.26 cm); Pain 8/10; 13:44 Body Mass Index 33.23 (102.06 kg, 175.26 cm) ED Course: 12:35 Patient arrived in ED. mr 12:35 Jerome Monique MD is Private Physician. mr 13:45 Triage completed. ss 13:45 Arm band placed on left wrist. ss Administered Medications: No medications were administered Outcome: 14:13 Patient left the ED. Signatures: Renetta Lehman Shelby, RN RN ss
[2021-05-03 14:17] VITALS: BP 143/94; TEMP 97.5; O2SAT 100
== END 2021-05-03 14:13 | disposition left against medical advice (07) ==
LOC: ER 12:31
DX: Z53.21 Procedure and treatment not carried out due to patient leaving prior to being seen by health care provider (principal)
CPT/HCPCS: 99281

== ENCOUNTER 2021-06-25 11:18 | Emergency (ER) | payer OTHER ==
--- OUTSIDE RECORDS SUMMARY | 2021-06-25 11:21 | XMS REPORT | Continuity of Care Document ---
:1960 Author Organization [facility] t Address [address] [place] [address] Care Team Providers Name Role Phone Lelia Chance LMSW Attending Clinician Unavailable Lesley Larson Attending Clinician Silvino FRANCE Attending Clinician Silvino FRANCE Admitting Clinician Problems Condition Condition Condition Status Onset Resolution Last Treating Co mments Source Name Details Category Date Date Treatment Clinician Date Obesity Obesity Disease Active 2020-0 Univers (BMI (BMI 7-26 ity of 30-39.9) 30-39.9) 00:00: [place] 00 [facility] Chest pain Chest pain Disease Active 2020-0 U nivers 7-26 ity of 00:00: [address] KOENIG KOENIG Disease Active 2020-0 Univers (dyspnea (dyspnea 7-25 ity of on on 00:00: [place] exertion) exertion) [address] [place] [address] Branch Allergies, Adverse Reactions, Alerts Allergy Allergy Status Severity Reaction(s) Onset Inactive Treating Comm ents Source Name Type Date Date Clinician NO KNOWN Drug Active Univers ALLERGIE Class ity of S [facility] NO KNOWN Allergy Active [facility] Social History Social Habit Start Date Stop Date Quantity Comments Source Sex Assigned At Uni [facility] Exposure to SARS-CoV-2 Not sure [facility] [place] (event) [facility] Smoking Status Start Date Stop Date Source Current every day smoker 2019-12-05 00:00:00 Uni [facility] Medications Ordered Filled Start Stop Current Ordering Indication Dosage Frequency Signature Comments Components Source Medication Medication Date Date Medication? Clinician (SIG) Name Name atorvastati Yes 40mg 40 mg, Univ ers n (LIPITOR) 7-27 Oral, QHS, it y of tablet 40 02:00: [place] 00 on [facility] 12/05/19 at Branch 2100, Until Discontinu ed, Routine atorvastati 2020-0 Yes 40mg Take 40 mg Univers n (LIPITOR) 12-04 by mouth ity of 40 mg 15:19: at [place] tablet 27 bedtime. Medical Branch clopidogreL 2020-0 Yes 75mg Take 75 mg Univers (PLAVIX) 75 - by mouth ity of mg tablet 15:19: daily. [place] [address] Medical Branch nitroglycer 2020-[address] 0.4 U nivers in 0.4 mg 7-26 mg under ity of sublingual 15:19: the tongue [place] tablet 27 every 5 Medical (five) Branch minutes as needed for Chest pain. acetaminoph 2020-0 Yes Take by Un william en with 7- mouth. ity of codeine 15:19: [place] (TYLENOL-CO 27 Medical DEINE #3 Branch ORAL) atorvastati 2020-0 Yes 40mg Take 40 mg Univers n (LIPITOR) 12-04 by mouth ity of 40 mg 15:19: at [place] tablet 27 bedtime. Medical Branch clopidogreL 2020-0 Yes 75mg Take 75 mg Univers (PLAVIX) 75 - by mouth ity of mg tablet 15:19: daily. [place] [address] Medical Branch nitroglycer 2020-[address] 0.4 U nivers in 0.4 mg 7-26 mg under ity of sublingual 15:19: the tongue [place] tablet 27 every 5 Medical (five) Branch minutes as needed for Chest pain. acetaminoph 2020-0 Yes Take by Un william en with 7- mouth. ity of codeine 15:19: [place] (TYLENOL-CO 27 Medical DEINE #3 Branch ORAL) aspirin 2020-0 Yes 325mg 325 mg, Univer s tablet 325 - Oral, ity of mg 14:00: DAILY, [place] 00 First dose Medical on [facility] 12/05/19 at 0900, Until Discontinu ed, Routine clopidogreL 2020-0 Yes 75mg 75 mg, Univ ers (PLAVIX) - Oral, ity of tablet 75 14:00: DAILY, [place] mg 00 First dose Medical on [facility] 12/05/19 at 0900, Until Discontinu ed, Routine enoxaparin 2020-0 Yes 40mg 40 mg, Unive rs (LOVENOX) 12-04 Subcutaneo ity of injection 14:00: [place], [place]ILY, [place] 40 mg 00 First dose Medical on [place] Branch 12/05/19 at 0900, Until Discontinu ed, Routine albuterol-i 2020-0 Yes 1{puff} 1 Puff, [facility] pratropium 12-04 Inhalation ity of (COMBIVENT 13:00: , QID, [place] RESPIMAT) 00 First dose Medi markus 20-100 on [facility] mcg/actuati 12/05/19 at on inhaler 0800, 1 Puff Until Discontinu ed, Routine
Is this order for a patient with suspected or confirmed COVID-19 infection? Yes clindamycin 2020-0 Yes 300mg 300 mg, Un william (CLEOCIN 12-04 Oral, TID, ity o f HCL) 13:00: First dose [place] capsule 300 00 on [place] Medica l mg 12/05/19 at Branch 0800, Until Discontinu ed, JAZZY
Re ason for Anti-Infec tive: Empiric Therapy for Suspected Infection< br>Empiric Therapy Site: Wound
D uration of therapy: 7 days
Re stricted use approved by: ADC PROVIDER nicotine 2020-0 Yes 1{patch 1 Patch, Un william (NICODERM) 12-04 } Topical, ity o f 14 mg/24 hr 08:45: Administer [place] patch 1 00 over 24 Medical Patch Hours, Branch Q24H, First dose on [place] 12/05/19 at 0345, Until Discontinu ed, Routine fluticasone 2020-0 Yes 1{spray 1 [place], Univers propionate 12-04 } Nasal, ity of 50 07:45: DAILY, [place] mcg/actuati 00 First dose Me dical on nasal on [place] Branch spray 1 12/05/19 at [place] 0245, Until Discontinu ed, Routine nitroglycer 2020-0 Yes .4mg 0.4 mg, Uni vers in 12-04 Sublingual ity of (NITROSTAT) 07:33: , Q5MIN Jesus as sublingual 58 PRN, Medical tablet 0.4 Starting Branc h mg [place] 12/05/19 at 0233, Until Discontinu ed, Routine, Chest pain pseudoephed 2020-0 Yes 30mg 30 mg, Univ ers rine 12-04 Oral, ity of (SUDAFED) 07:32: Q6HPRN, [place] tablet 30 52 Starting Medica l mg [facility] 12/05/19 at 0232, Until Discontinu ed, Routine, sinus confestion ondansetron 2020-0 Yes 4mg 4 mg, Slow Univers (ZOFRAN 12-04 IV Push, ity of (PF)) 05:45: Q6HPRN, [place] injection 4 12 Starting Medi markus mg [facility] 12/05/19 at 0045, Until Discontinu ed, Routine, Nausea and Vomiting (N/V) HYDROcodone 2020-0 Yes 1{tbl} 1 tablet, Univers -acetaminop 12-04 Oral, ity of hen (NORCO) 05:45: Q6HPRN, Jesus as 10-325 mg 09 Starting Medica l tablet 1 [facility] tablet 12/05/19 at 0045, Until Discontinu ed, Routine, Pain (scale 7-10) traMADol 2019-0 2020- No 50mg 50 mg, Univer s (ULTRAM) 12-04 Oral, ity of tablet 50 05:45: 05:44 Q8HPRN, [place] mg 03 :03 Starting Medical [facility] 12/05/19 at 0045, Until 12/07/19 at 0044, Routine, Pain (scale 4-6) acetaminoph 2020-0 Yes 650mg 650 mg, Un william en 12-04 Oral, ity of (TYLENOL) 05:44: Q6HPRN, [place] tablet 650 57 Starting Medic al mg [facility] 12/05/19 at 0044, Until Discontinu ed, Routine, Pain (scale 1-3) iohexol 2020-0 2020- No 120mL 120 mL, Unive rs (OMNIPAQUE 12-04 Intravenou it y of 350 03:45: 03:33 s, ONCE, 1 [place] BULK-100 00 :00 dose, Sat Medica l mL) 12/04/19 at [place] injection 2245, 120 mL Routine nitroglycer 2019-0 2020- No .5[in_u 0.5 Inch, Univers in (NITROL) 12-04 s] Transderma i ty of 2 % 02:15: 01:27 l (Apply [place] ointment 00 :00 To Skin), Medica l 0.5 Inch ONCE, 1 Branch dose, 12/04/19 at 2115, JAZZY aspirin 2020 2020- No 243mg 243 mg, Unive rs chewable 12-04 Oral, ity of tablet 243 02:15: 01:27 ONCE, 1 [place] as mg 00 :00 dose, Sat Medical 12/04/19 at Branch 2115, Routine clindamycin 2019- Yes 300mg Take 300 U nivers 300 mg 7-24 mg by ity of capsule 00:00: mouth 3 [place] 00 (three) Medical times [place] daily. clindamycin 2019-0 Yes 300mg Take 300 U nivers 300 mg 7-24 mg by ity of capsule 00:00: mouth 3 [place] 00 (three) Medical times [place] daily. Vital Signs Vital Name Observation Time Observation Value Comments Source Systolic blood 2019-12-05 13:36:00 94 mm[Hg] Univer sity of pressure [facility] Diastolic blood 2019-12-05 13:36:00 75 mm[Hg] Unive rsity of [facility] Heart rate 2019-12-05 13:36:00 102 /min [facility] Body temperature 2019-12-05 13:36:00 37.06 Olga Lidia [facility] Respiratory rate 2019-12-05 13:36:00 14 /min [facility] Oxygen saturation in 2019-12-05 13:36:00 97 /min [facility] Arterial blood by [facility] [place] [facility] Pulse oximetry [place] Body height 2019-12-05 05:36:00 175.3 cm [facility] Body weight 2019-12-05 05:36:00 95.301 kg [facility] BMI 2019-12-05 05:36:00 31.03 kg/m2 [facility] Procedures Procedure Date / Time Performed Performing Clinician Sourc e TROPONIN I 2019-12-05 10:31:00 [facility] LIPID PANEL 2019-12-05 10:31:00 [facility] ([id number])(TOTAL Medical [place] CHOLESTEROL, TRIGLYCERIDES, HDL) CT CHEST PULMONARY 2019-12-05 03:37:22 [facility] ANGIOGRAM Medical Branch COMP. METABOLIC PANEL 2019-12-05 01:26:00 [place] [facility] ([id number]) Medical Branch CBC WITH DIFF 2019-12-05 01:26:[address] [place] [address] [facility] N-TERMINAL PRO-BNP 2019-12-05 01:26:00 [place] [facility] COVID-19 (ID NOW RAPID 2019-12-05 01:26:00 [place] [facility] TESTING) Medical Branch MAGNESIUM 2019-12-05 01:26:[address] [facility] TROPONIN I 2019-12-05 01:26:[address] [facility] XR CHEST 1 VW 2019-12-05 01:24:[address] [place] [address] [facility] ASSIGNMENT OF BENEFITS 2019-12-04 23:24:49 Doctor Unassigned, No [facility] Branch NOTICE OF PRIVACY 2019-12-04 23:24:34 Doctor Unassigned, No [facility] PRACTICES Name [facility] CONSENT/REFUSAL FOR 2019-12-04 23:24:17 Doctor Unassigned, No [facility] DIAGNOSIS AND [facility] Branch TREATMENT Encounters Start End Encounter Admission Attending Care Care Encounter Source Date/Time Date/Time Type Type Clinicians Facility Department ID 2020-11-16 2020-11-16 Outpatient [facility] [id number] [facility] 00:00:00 00:00:00 2020-11-16 2020-11-16 Outpatient [facility] [id number] [facility] 00:00:00 00:00:00 2019-12-06 2019-12-06 Telephone PARMJIT Chance [id number] Univers 00:00:00 00:00:00 Lala KIRK [id number] [facility] [id number] Jesus as [id number] [place] [id number] Branch 2019-12-04 2019-12-05 [facility] [place] [facility] [id number] Univers 18:55:37 09:15:00 Encounter [id number] [id number] [facility] 080 Branch 2019-12-04 2019-12-04 Emergency X [facility] ERT [id number] Univers 18:22:00 [facility]:22[facility] Test Description Test Time Test Comments Results Result [facility] Comments MR, MRA, BRAIN, 2020-11-16 Unlisted WITH 14:43:00 Reason for Exam - Click CHI Yes and Enter [facility] - MEDICAL Reason CENTERName: Ivis MARY->Yes ASHLEY : Unlisted 1960 Reason for Sex: Exam->i25.119 M FI NAL REPORT MR, MRA, BRAIN, WITH \\T\\ WITHOUT CONTRAST, MR, MRA, NECK, WITHOUT IV CONTRAST INDICATION: Unlisted Reason for Exami25.119 TECHNIQUE: Multiplanar, multisequence MR images of the brain. 3-D time of flight MRA of the cranial and cervical circulation. 2-D time of flight MRA of the neck. 3D MIP angiographic post-processing was performed. Stenosis evaluation utilized NASCET criteria. COMPARISON: None FINDINGS: MRA BRAIN:Internal carotid arteries: Lack of flow related enhancement within the left cervical and intracranial carotid artery.Normal flow related enhancement without flow-limiting stenosisMiddle cerebral arteries: Normal flow related enhancement within the bilateral MCA M1-M2 segments Anterior cerebral arteries: Normal flow-related enhancement within the bilateral JORDAN A1-A2 segments without flow limiting stenosisBasilar system: Normal flow-related enhancement within the bilateral V4 segments and the basilar artery Posterior cerebral arteries: The right MACHINIST HELPER circulation is derived primarily from the anterior circulation. Normal flow-related enhancement within the left MACHINIST HELPER P1-P2 segments Additional findings: None. MRA NECK:Common carotid arteries: Unremarkable. Cervical internal carotid arteries: Lack of flow related enhancement within the left cervical and intracranial carotid artery. No flow limiting stenosis on the right.Vertebral arteries: Origins are not well-seen. No flow limiting stenosis within the visualized cervical vertebral arterial segments. Limited assessment of the V3 segment secondary to noncontrast technique. IMPRESSION: Lack of flow related enhancement within the left cervical and intracranial carotid artery. Signed: Daly Higgins MDReport Verified Date/Time: 11/16/2020 14:43:14 Reading Location: [address] Neuro Reading Room , MRA, NECK, 2020-11-16 Unlisted WITHOUT IV 14:43:00 Reason for CONTRAST Exam - Click CHI Yes and Enter [facility] - MEDICAL Reason CENTERName: SUMEETWalterIvis->Dot CHAVARRIAALD : Unlisted 1960 Reason for Sex: Exam->i25.119 M FI NAL REPORT MR, MRA, BRAIN, WITH \\T\\ WITHOUT CONTRAST, MR, MRA, NECK, WITHOUT IV CONTRAST INDICATION: Unlisted Reason for Exami25.119 TECHNIQUE: Multiplanar, multisequence MR images of the brain. 3-D time of flight MRA of the cranial and cervical circulation. 2-D time of flight MRA of the neck. 3D MIP angiographic post-processing was performed. Stenosis evaluation utilized NASCET criteria. COMPARISON: None FINDINGS: MRA BRAIN:Internal carotid arteries: Lack of flow related enhancement within the left cervical and intracranial carotid artery.Normal flow related enhancement without flow-limiting stenosisMiddle cerebral arteries: Normal flow related enhancement within the bilateral MCA M1-M2 segments Anterior cerebral arteries: Normal flow-related enhancement within the bilateral JORDAN A1-A2 segments without flow limiting stenosisBasilar system: Normal flow-related enhancement within the bilateral V4 segments and the basilar artery Posterior cerebral arteries: The right MACHINIST HELPER circulation is derived primarily from the anterior circulation. Normal flow-related enhancement within the left MACHINIST HELPER P1-P2 segments Additional findings: None. MRA NECK:Common carotid arteries: Unremarkable. Cervical internal carotid arteries: Lack of flow related enhancement within the left cervical and intracranial carotid artery. No flow limiting stenosis on the right.Vertebral arteries: Origins are not well-seen. No flow limiting stenosis within the visualized cervical vertebral arterial segments. Limited assessment of the V3 segment secondary to noncontrast technique. IMPRESSION: Lack of flow related enhancement within the left cervical and intracranial carotid artery. Signed: Daly Higgins MDReport Verified Date/Time: 11/16/2020 14:43:14 Reading Location: [address] Neuro Reading Room ONIN I 2019-12-05 11:49:00 Test Item Value Reference Range Interpretation Comme nts TROPONIN I (test code = <0.012 See_Comment [Au tomated message] The [id number]) system which [employer] nerated this result tra nsmitted reference range : <=0.034 ng/mL. The refe rence range was not u sed to interpret this result as normal/abnormal . AGUSTO (test code = AGUSTO) Equal or Less than 0.034 ng/ml---Normal ?Note: Cardiac troponin begins to rise 3-4 hours after the onset of ischemia. Repeat in 4-6 hours if the sample was drawn within 3-4 hours of the onset of the symptom and found normal. Between 0.035 and 0.120 ng/mL--- Borderline. Questionable myocardial injury or necrosis ? ?Note: Serial measurement may be necessary to confirm or exclude the diagnosis of myocardial injury or necrosis; Clinical correlation (symptoms, EKGs, imaging studies, and others) required; Repeat in 4-6 hours if clinically indicated. ? Equal or Higher than 0.121 ng/mL---Abnormal. Myocardial Injury or Necrosis Likely ? Biotin has been reported to cause a negative bias, interpret results relative to patient's use of biotin. ? Lab Interpretation (test Normal code = 66792-6) [id number]TOTAL CHOLESTEROL, TRIGLYCERIDES, HDL)2019-12-05 11:41:00 Test Item Value Reference Range Interpretation Comments CHOL (test code = 91 mg/dL 120-200 L [id number]) HDL (test code = 27 mg/dL >40 L [id number]) HDLC RATIO (test code = See_Comment [Au tomated message] [id number]) The system [employer] generated this result transmit ariella reference range : <=5.0. The refe rence range was not u sed to interpret th is result as normal/abnormal . TRIG (test code = 152 mg/dL 30-170 [id number]) LDL CHOL (test code = 34 mg/dL See_Comment [Auto mated message] 40274-5) The system [employer] generated this result transmit ariella reference range : <=160. The refe rence range was not u sed to interpret th is result as normal/abnormal . VLDL (test code = 30 mg/dL 5-60 [id number]) Lab Interpretation (test Abnormal code = 90393-6) [facility] [id number] 04:41:58 No acute pulmonary embolism. Solid 8mm nodule within the medial right lower lobe. Recommend follow-up in6-12 months to document stability. Subcutaneous collection within the midline upper back probably representsebaceous cyst. Correlate clinically. Preliminary Report Dictated by Resident: Chuck Rodriguez MD., have reviewed this study and agree with theabove report.PROCEDURE:CT ANGIO CHEST WITH CONTRAST - PE PROTOCOL CLINICAL INDICATION: 59 years Male PE suspected, high pretest prob COMPARISON: ?None. TECHNIQUE: ?Helical CT was performed and reconstructed at 1.25 mm slicethickness from lung apices to bases using 100 mL Omnipaque intravenouscontrast, without complication.? Axial MIPs were generated and reviewed tofurther define anatomy and possible pathology. ? (DFOV = 40 cm) FINDINGS: PULMONARY ARTERIES: Enhancement is appropriate for evaluation. No acute pulmonary embolism isidentified. Main pulmonary arteries are normal in caliber measuring 2.8 cmin transverse dimension at the level of right/left pulmonary arterybifurcation. CHEST: Lower neck/thyroid: Unremarkable. Lungs: Mild bilateral upper lobe paraseptal emphysema. Solid 4 mm right upper lobe pulmonary nodule (5:91). 8 mm solid nodulewithin medial right lower lobe (5:196). Lingular subsegmental atelectasis.Central airway: Unremarkable. Pleura: No pleural effusion, thickening or pneumothorax. Thoracic aorta and great vessels: ?Normal in diameter. Heart and pericardium: Moderate LAD coronary arterial calcifications.Unremarkable cardiac morphology and pericardium. Lymph nodes: 1.3 cm right lower paratracheal lymph node is seen. Scatteredsubcentimeter mediastinal and hilar lymph nodes are present. Mediastin um: Small hiatal hernia. Thoracic spine and chest wall: No acute fracture. Mild degenerative changesof the thoracic spine are noted, with normal thoracic vertebral bodyheights. 3.6 x 2.3 cm collection within the midline upper back subcutaneous softtissues probably represents a sebaceous cyst (5:39). Other Lines/Tubes/Devices/Hardware: None Visualized upper abdomen: No sliding-type hiatal hernia with distalpatulous esophagus.. [facility], Radiant Results Inft User - 12/04/2019 11:43 PM CDTPROCEDURE: CT ANGIO CHEST WITH CONTRAST - PE PROTOCOLCLINICAL INDICATION: 59 years Male PE suspected, high pretest prob COMPARISON: None.TECHNIQUE: Helical CT was performed and reconstructed at 1.25 mm slicethickness from lung apices to bases using 100 mL Omnipaque intravenouscontrast,without complication. Axial MIPs were generated and reviewed tofurther define anatomy and possiblepathology. (DFOV = 40 cm)FINDINGS:PULMONARY ARTERIES: Enhancement is appropriate for evaluation. No acute pulmonary embolism isidentified. Main pulmonary arteries are normal in caliber measuring 2.8 cmin transverse dimension at the level of right/left pulmonary arterybifurcation.CHEST:Lower neck/thyroid: Unremarkable.Lungs: Mild bilateral upper lobe paraseptal emphysema.Solid 4 mm right upper lobe pulmonary nodule (5:91). 8 mm solid nodulewithin medial right lower lobe (5:196).Lingular subsegmental atelectasis.Central airway: Unremarkable.Pleura: No pleural effusion, thickening or pneumothorax.Thoracic aorta and great vessels: Normal in diameter.Heart and pericardium: Moderate LAD coronary arterial calcifications.Unremarkable cardiac morphology and pericardium.Lymph nodes: 1.3 cm right lower paratracheal lymph node is seen. Scatteredsubcentimeter mediastinal and hilar lymph nodes are present.M ediastinum: Small hiatal hernia.Thoracic spine and chest wall: No acute fracture. Mild degenerative changesof the thoracic spine are noted, with normal thoracic vertebral bodyheights.3.6 x 2.3 cm collection within the midline upper back subcutaneous softtissues probably represents a sebaceous cyst (5:39).Other Lines/Tubes/Devices/Hardware: NoneVisualized upper abdomen: No sliding-type hiatal hernia with distalpatulous esophagus.. IMPRESSIONNo acute pulmonary embolism.Solid 8mm nodule within the medial right lower lobe. Recommend follow- up in6-12 months to document stability.Subcutaneous collection within the midline upper back probably representsebaceous cyst. Correlate clinically.Preliminary Report Dictated by Resident: Chuck Uriostegui MD., have reviewed this study and agree with theabove report. [facility]ID NOW RAPID TESTING)2019-12-05 02:48:00 Test Item Value Reference Range Interpretation Comments SARS-CoV-2 Rapid ID NOW Not Detected Not Detected (test code = 35119-1) AGUSTO (test code = AGUSTO) ID NOW COVID-19 Assay is an isothermal nucleic acid amplification test intended for the qualitative detection of nucleic acid from SARS-CoV-2 viral RNA in nasopharyngeal (FIELD MERCHANDISER) specimens. It is used under Emergency Use Authorization (EUA) by FDA. The limit of detection (LOD) of the assay is 125 Genome Equivalents/mL. A positive result is indicative of the presence of SARS-CoV-2 RNA. ?Clinical correlation with patient history and other diagnostic information is necessary to determine patient infection status. A negative (Not Detected) result does not preclude SARS-CoV-2 infection. In patients with clinical symptoms and other tests that are consistent with SARS-CoV-2 infection, negative results should be treated as presumptive negative and a new specimen should be tested with alternative PCR molecular test. Invalid: Please collect a new specimen for repeat patient testing if clinically indicated. Lab Interpretation Normal (test code = 30590-5) [facility] [id number] 02:05:00 Test Item Value Reference Range Interpretation Comments TROPONIN I (test <0.012 See_Comment [Automated code = [id number]) message] The system which generated this result transmitted reference range : <=0.034 ng/mL. The reference range was not used to interpr et this result as normal/abnormal . AGUSTO (test code = Equal or Less than AGUSTO) 0.034 ng/ml---Normal ?Note: Cardiac troponin begins to rise 3-4 hours after the onset of ischemia. Repeat in 4-6 hours if the sample was drawn within 3-4 hours of the onset of the symptom and found normal. Between 0.035 and 0.120 ng/mL--- Borderline. Questionable myocardial injury or necrosis ? ?Note: Serial measurement may be necessary to confirm or exclude the diagnosis of myocardial injury or necrosis; Clinical correlation (symptoms, EKGs, imaging studies, and others) required; Repeat in 4-6 hours if clinically indicated. ? Equal or Higher than 0.121 ng/mL---Abnormal. Myocardial Injury or Necrosis Likely ? Biotin has been reported to cause a negative bias, interpret results relative to patient's use of biotin. ? Lab Interpretation Normal (test code = 71237-4) [facility] 1 [id number] 02:01:54Findings and Impression: ?Clear lungs. Streaky opacities within the leftlower lobe and left retrocardiac space probably represent combination ofvessels and atelectasis. No consolidation seen. No pleural effusion orpneumothorax. Heart size is normal. No acute osseous abnormality. Disclaimer: Generally, the findings on chest imaging in COVID-19 are notspecific, and overlap with other infections, includ ing influenza, H1N1,SARS and MERS.According to the Centers for Disease Control (CDC) and the [employer] [employer], viral testing remains the only specific method of diagnosiseven if CXR or CT findings are suggestive of COVID- 19. PORTABLE CHEST RADIOGRAPH History: koenig, cp Comparison: None available. TECHNIQUE: AP view of the chest. [facility], Radiant Results Inft User - 12/04/2019 9:03 PM CDTPORTABLE CHEST RADIOGRAPHHistory: koenig, cp Comparison: None available.TECHNIQUE: AP view of the chest.IMPRESSIONFindings and Impression: Clear lungs. Streaky opacities within the leftlower lobe and left retrocardiac space probably represent combination ofvessels and atelectasis. No consolidation seen. No pleural effusion orpneumothorax. Heart size is normal. No acute osseous abnormality.Disclaimer: Generally, the findings on chest imaging in COVID-19 are notspecific, and overlap with other infections, including influenza, H1N1,SARS and MERS.According to the Centers for Disease Control (CDC) and the [place] [employer], viral testing remains the only specific method of diagnosiseven if CXR or CT findings are suggestive of COVID-19.[id number] 02:01:00 Test Item Value Reference Range Interpretation Comments NT-proBNP (test code 116 pg/mL See_Comment [Autom ated = 1827369343) message] The system which generated this result transmitted reference range : <=125. The reference range was not used to interpret this result as normal/abnormal . AGUSTO (test code = AGUSTO) Biotin has been reported to cause a negative bias, interpret results relative to patient's use of biotin. Lab Interpretation Normal (test code = 43041-7) [facility]. METABOLIC PANEL (03695)2019-12-05 01:53:00 Test Item Value Reference Range Interpretation Comments NA (test code = 135 mmol/L 135-145 8931072723) K (test code = 3.9 mmol/L 3.5-5 4381228910) CL (test code = 102 mmol/L 98-108 6104009127) CO2 TOTAL (test code = 25 mmol/L 23-31 8519214299) AGAP (test code = 2-16 1577816729) BUN (test code = 14 mg/dL 7-23 1918149040) GLUCOSE (test code = 99 mg/dL 70-110 6466765446) CREATININE (test code 0.89 mg/dL 0.6-1.25 = 5770384908) TOTAL BILI (test code 0.7 mg/dL 0.1-1.1 = 7047175847) CALCIUM (test code = 9.1 mg/dL 8.6-10.6 8105096981) T PROTEIN (test code = 7.7 g/dL 6.3-8.2 3511189385) ALBUMIN (test code = 4.1 g/dL 3.5-5 7518764883) ALK PHOS (test code = 105 U/L 34-122 3997508241) ALTv (test code = 13 U/L 5-50 1742-6) AST(SGOT) (test code = 23 U/L 13-40 5207707172) eGFR Calculation mL/min/1.73m2 (Non-) (test code = 0703155928) eGFR Calculation mL/min/1.73m2 () (test code = 1245214583) AGUSTO (test code = AGUSTO) Association of Glomerular Filtration Rate (GFR) and Staging of Kidney Disease* + -+ + ---+| GFR (mL/min/1.73 m2) ?| With Kidney Damage ?| ?Without Kidney Damage+ -------+ ------+ ---------+| ?>90 ?| ?Stage one ?| ? Normal ?+ --+ -+ ----+| ?60-89 ?| ?Stage two ?| ? Decreased GFR ? + -+ + ---+| ?30-59 ?| ?Stage three ?| ? Stage three ? + -+ + ---+| ?15-29 ?| ?Stage four ? | ? Stage four ?+ --+ -+ ----+| ?<15 (or dialysis) ? ?| ?Stage five ? | ? Stage five ?+ --+ -+ ----+ *Each stage assumes the associated GFR level has been in effect for at least three months. ?Stages 1 to 5, with or without kidney disease, indicate chronic kidney disease. Notes: Determination of stages one and two (with eGFR >59mL/min/1.73 m2) requires estimation of kidney damage for at least three months as defined by structural or functional abnormalities of the kidney, manifested by either:Pathological abnormalities or Markers of kidney damage (including abnormalities in the composition of the blood or urine or abnormalities in imaging tests). [facility] Test Item Value Reference Range Interpretation Comments MAGNESIUM (test code = 7900759055) 2.2 mg/dL 1.7-2.4 Lab Interpretation (test code = Normal 08738-6) [facility] WITH [id number] 01:40:00 Test Item Value Reference Range Interpretation Comments WBC (test code = See_Comment H [Automated 1890-2) message] The sy stem which generated this result transmitted reference range : 4.20 - 10.70 10*3/?L. The reference range was not used to interpret this result as normal/abnormal . RBC (test code = See_Comment [Automated 259-8) message] The sy stem which generated this result transmitted reference range : 4.26 - 5.52 10*6/?L. The reference range was not used to interpret this result as normal/abnormal . HGB (test code = 14.9 g/dL 12.2-16.4 718-7) HCT (test code = 44.4 % 38.4-49.3 4544-3) MCV (test code = 91.0 fL 81.7-95.6 787-2) MCH (test code = 30.5 pg 26.1-32.7 785-6) MCHC (test code = 33.6 g/dL 31.2-35 786-4) RDW-SD (test code = 43.6 fL 38.5-51.6 69852-8) RDW-CV (test code = 13.0 % 12.1-15.4 788-0) PLT (test code = See_Comment [Automated 777-3) message] The sy stem which generated this result transmitted reference range : 150 - 328 10*3/ ?L. The reference r rosanne was not used to interpret this result as normal/abnormal . MPV (test code = 11.0 fL 9.8-13 13602-3) NRBC/100 WBC (test See_Comment [Automat ed code = 6721127855) message] The system which generated this result transmitted reference range : 0.0 - 10.0 /100 WBCs. The refer ence range was not u sed to interpret th is result as normal/abnormal . NRBC x10^3 (test code <0.01 See_Comment [Auto mated = 8020360945) message] The s ystem which generated this result transmitted reference range : 10*3/?L. The reference range was not used to interpret this result as normal/abnormal . GRAN MAT (NEUT) % 60.6 % (test code = 770-8) IMM GRAN % (test code 0.60 % = 1969648874) LYMPH % (test code = 23.2 % 736-9) MONO % (test code = 12.0 % 5905-5) EOS % (test code = 3.1 % 713-8) BASO % (test code = 0.5 % 706-2) GRAN MAT x10^3(ANC) 6.74 10*3/uL 1.99-6.95 (test code = 1898888132) IMM GRAN x10^3 (test 0.07 10*3/uL 0-0.06 H code = 0186189865) LYMPH x10^3 (test code 2.58 10*3/uL 1.09-3.23 = 731-0) MONO x10^3 (test code 1.34 10*3/uL 0.36-1.02 H = 742-7) EOS x10^3 (test code = 0.34 10*3/uL 0.06-0.53 711-2) BASO x10^3 (test code 0.06 10*3/uL 0.01-0.09 = 704-7) Lab Interpretation Abnormal (test code = 40561-3) [facility]"
[2021-06-25] MEDS ORDERED: PHENYLEPHRINE 0.5% NOSE 15ML NAS ONE (11:59)
[2021-06-25] MEDS ORDERED: ONDANSETRON 4 MG (ODT) TAB ONE (13:01)
--- NOTE | 2021-06-25 14:35 | ER ---
Nurse's Notes [facility] Name: Juan José Mcginnis Jr Age: 61 yrs Sex: Male : 1960 Arrival Date: 06/25/2021 Time: 11:21 Bed 11 Private MD: Diagnosis: Epistaxis Presentation: 06/25 11:39 Chief complaint: Patient states: Nose bleeding today. On blood thinners. Has had ll1 cough/congestion for 5 days. No fever. Coronavirus screen: Vaccine status: Patient reports being unvaccinated. Client denies travel out of the [place] in the last 14 days. congestion, cough unrelated to allergies. Ebola Screen: Patient denies travel to an Ebola-affected area in the 21 days before illness onset. Initial Sepsis Screen: Does the patient meet any 2 criteria? No. Patient's initial sepsis screen is negative. Does the patient have a suspected source of infection? Yes: Other: nose bleed. Risk Assessment: Do you want to hurt yourself or someone else? Patient reports no desire to harm self or others. Onset of symptoms was June 20, 2021. 11:39 Method Of Arrival: Ambulatory ll1 11:39 Acuity: CLAUDIA 3 ll1 Historical: - Allergies: 11:41 No Known Allergies; ll1 - PMHx: 11:41 Carotid artery occlusion Left Anterior; CAD; High Cholesterol; Hypertension; ll1 - PSHx: 11:41 heart cath and stent; ll1 - Immunization history:: Client reports having NOT received the Covid vaccine. - Social history:: Smoking status: Reported history of juuling and/or vaping. Patient denies any tobacco usage or history of. Vital Signs: 11:39 BP 170 / 103; Pulse 80; Resp 17; Temp 97.6; Pulse Ox 99% on R/A; Weight 102.06 kg; ll1 Height 5 ft. 9 in. (175.26 cm); Pain 0/10; 11:39 Body Mass Index 33.23 (102.06 kg, 175.26 cm) ll1 ED Course: 11:21 Patient arrived in ED. as 11:41 Triage completed. ll1 11:41 Arm band placed on. 1 11:44 Jocelyn Aly RN is Primary Nurse. [facility] 11:46 Paul Lucio PA is PHCP. jr8 11:46 Zohaib Reis MD is Attending Physician. jr8 11:49 PHCP role handed off by Paul Lucio PA jmm 11:49 Jose De Jesus Stone [facility] Administered Medications: 12:05 Drug: Donald-Synephrine (phenylephrine) [place] 0.5 % 2 sprays Route: Intranasal; Site: left [facility] nare; 12:59 Drug: Zofran (Ondansetron) 4 mg Route: PO; [facility] Outcome: 14:33 Discharge ordered by . nestor 14:53 Patient left the ED. [facility] Signatures: Jose De Jesus Stone PA PA [facility] Shila Bentley as Paul Lucio PA PA [facility] Milton Marshall RN RN 1 Jocelyn Aly RN RN 5
--- NOTE | 2021-06-25 14:35 | EDPHYS ---
Physician Documentation [facility] Name: Juan José Mcginnis Jr Age: 61 yrs Sex: Male : 1960 Arrival Date: 06/25/2021 Time: 11:21 Bed 11 Private MD: ED Physician Zohaib Reis HPI: 06/25 11:49 This 61 yrs old Male presents to ER via Ambulatory with complaints of Nose Bleed. [facility] 11:49 The patient presents with a nose bleed, that is apparently anterior, from the left jm nare. Onset: The symptoms/episode began/occurred this morning, at 07:30. Modifying factors: The symptoms are alleviated by nothing. the symptoms are aggravated by blowing nose. The patient has not experienced similar symptoms in the past. Patient states he has been experiencing an upper respiratory infection for the past week.. Historical: - Allergies: 11:41 No Known Allergies; ll1 - PMHx: 11:41 Carotid artery occlusion Left Anterior; CAD; High Cholesterol; Hypertension; ll1 - PSHx: 11:41 heart cath and stent; ll1 - Immunization history:: Client reports having NOT received the Covid vaccine. - Social history:: Smoking status: Reported history of juuling and/or vaping. Patient denies any tobacco usage or history of. ROS: 11:49 Constitutional: Negative for fever, chills, and weight loss, Eyes: Negative for injury, jmm pain, redness, and discharge. 11:49 ENT: Positive for nose bleed, sinus congestion. 11:49 All other systems are negative. Exam: 11:49 Constitutional: This is a well developed, well nourished patient who is awake, alert, jmm and in no acute distress. Head/Face: atraumatic. Eyes: EOMI, no conjunctival erythema appreciated 11:49 Neck: Trachea midline, Supple Chest/axilla: Normal chest wall appearance and motion. Cardiovascular: Regular rate and rhythm. No edema appreciated Respiratory: Normal respirations, no respiratory distress appreciated Abdomen/GI: Non distended, soft Back: Normal ROM Skin: General appearance color normal MS/ Extremity: Moves all extremities, no obvious deformities appreciated, no edema noted to the lower extremities Neuro: Awake and alert Psych: Behavior is normal, Mood is normal, Patient is cooperative and pleasant 11:49 ENT: Nose: bleeding, is seen from the left nare, and is minimal, Posterior pharynx: is normal. Vital Signs: 11:39 BP 170 / 103; Pulse 80; Resp 17; Temp 97.6; Pulse Ox 99% on R/A; Weight 102.06 kg; ll1 Height 5 ft. 9 in. (175.26 cm); Pain 0/10; 11:39 Body Mass Index 33.23 (102.06 kg, 175.26 cm) ll1 MDM: 11:49 Patient medically screened. [facility] 14:29 Data reviewed: vital signs, nurses notes. Counseling: I had a detailed discussion with nestor the patient and/or guardian regarding: the historical points, exam findings, and any diagnostic results supporting the discharge/admit diagnosis, the need for outpatient follow up, to return to the emergency department if symptoms worsen or persist or if there are any questions or concerns that arise at home. ED course: Bleeding resolved with pressure. Patient advised follow-up PCP and otherwise given strict return precautions. Patient understood and agrees plan of care. . 06/25 11:52 Order name: [facility]. Order: nose clamp, neosynephrine gauze; Complete Time: 12:05 [facility] Administered Medications: 12:05 Drug: Donald-Synephrine (phenylephrine) [place] 0.5 % 2 sprays Route: Intranasal; Site: left jh5 nare; 12:59 Drug: Zofran (Ondansetron) 4 mg Route: PO; jh5 Disposition: 15:22 Co-signature as Attending Physician, Zohaib Reis MD. rn Disposition Summary: 06/25/21 14:33 Discharge Ordered Location: Home [facility] Condition: Stable [facility] Diagnosis - Epistaxis [facility] Followup: [facility] - With: Private Physician - When: 2 - 3 days - Reason: Recheck today's complaints, Continuance of care, Re-evaluation by your physician Discharge Instructions: - Discharge Summary Sheet [facility] - Nosebleed, Adult [facility] Forms: - Medication Reconciliation Form [facility] - Thank You Letter héctor - Antibiotic Education [facility] - Prescription Opioid Use [facility] Prescriptions: - Bromfed DM 2-30-10 mg/5 mL Oral syrup - take 10 milliliter by ORAL route every 4 hours; 200 milliliter; Refills: 0, nestor Product Selection Permitted Signatures: MicJose De Jesus kwok PA PA jmm Nieto, Roman, MD MD rn Milton Marshall RN RN ll1 Jocelyn Ayl RN RN jh5
[2021-06-25 16:13] VITALS: BP 170/103; TEMP 97.6; O2SAT 99
== END 2021-06-25 14:53 | disposition home or self-care (01) ==
LOC: ER 11:18
DX: R04.0 Epistaxis (principal); I10 Essential (primary) hypertension; Z95.818 Presence of other cardiac implants and grafts
CPT/HCPCS: 99282